=== PATIENT | male | born 1955 | race African-American/Black ===

== ENCOUNTER 2018-11-16 10:52 | Inpatient (IN) | payer OTHER ==
[~2018-11-16] VITALS: Ht 188 cm; Wt 115.2 kg
[~2018-11-16 10:52] MED LIST: HYDR4TAB4 PO; OXYC20TA PO; QUET300T2 PO; QUET400T PO; TRAZ-214 PO
[2018-11-16] MEDS ORDERED: ACETAMINOPHEN ES 500 MG TABLET PO PRN (14:30)
[2018-11-16] MEDS ORDERED: MAGNESIUM HYDROXIDE 30 ML UDC PO PRN (14:30)
[2018-11-16] MEDS ORDERED: MAG HYDROX/AL HYDROX/SIMETH 30 ML UDC PO PRN (14:30)
[2018-11-16 16:00] VITALS: BP 153/82
[2018-11-16] MEDS: LORAZEPAM 1 MG TABLET FOR AGITATION PO PRN (16:13)
[2018-11-16 20:00] VITALS: BP 143/77
[2018-11-16] MEDS: TRAZODONE 50 MG PO SCH (21:57)
[2018-11-16] MEDS ORDERED: SEROQUEL 300 MG PO SCH (22:00)
[2018-11-17] MEDS ORDERED: IBUPROFEN 200 MG TABLET ONE (02:40)
[2018-11-17] MEDS: IBUPROFEN 200 MG TABLET PO PRN ×3 (02:44→20:22)
[2018-11-17] MEDS: LORAZEPAM 1 MG TABLET FOR AGITATION PO PRN ×2 (05:07→17:09)
[2018-11-17 08:00] VITALS: BP 164/90
[2018-11-17] MEDS: BENAZEPRIL HCL 20 MG TABLET PO SCH (08:03)
[2018-11-17 16:00] VITALS: BP 158/91
[2018-11-17] MEDS: ACETAMINOPHEN ES 500 MG TABLET PO PRN (16:08)
[2018-11-17 20:03] VITALS: BP 150/82
[2018-11-17 20:26] VITALS: BP 150/82
[2018-11-17] MEDS: TRAZODONE 50 MG PO SCH (21:40)
[2018-11-17] MEDS ORDERED: SEROQUEL 50 MG PO SCH (22:00)
[2018-11-18] MEDS: ZOLPIDEM TARTRATE 10 MG TABLET PO PRN (00:25)
[2018-11-18] MEDS: IBUPROFEN 200 MG TABLET PO PRN ×3 (04:48→13:01)
[2018-11-18] MEDS: ACETAMINOPHEN ES 500 MG TABLET PO PRN ×3 (06:19→19:59)
[2018-11-18 08:00] VITALS: BP 152/102
[2018-11-18] MEDS: BENAZEPRIL HCL 20 MG TABLET PO SCH (08:01)
[2018-11-18 16:00] VITALS: BP 152/83
[2018-11-18] MEDS: TRIHEXYPHENIDYL HCL 2 MG TABLET PO SCH ×2 (16:34→20:00)
[2018-11-18 20:00] VITALS: BP 161/96
[2018-11-18] MEDS ORDERED: LORAZEPAM INJ 2 MG/ML VIAL IM ONE (20:40)
[2018-11-18] MEDS ORDERED: LORAZEPAM INJ 2 MG/ML VIAL IV ONE (21:00)
[2018-11-18] MEDS: TRAZODONE 50 MG PO SCH (21:54)
[2018-11-18] MEDS ORDERED: SEROQUEL 50 MG PO SCH (22:00)
[2018-11-19] MEDS: ZOLPIDEM TARTRATE 10 MG TABLET PO PRN ×2 (00:48→21:20)
[2018-11-19] MEDS: IBUPROFEN 200 MG TABLET PO PRN ×3 (02:43→19:10)
[2018-11-19] MEDS: LORAZEPAM 1 MG TABLET FOR AGITATION PO PRN ×2 (02:47→16:13)
[2018-11-19] MEDS: ACETAMINOPHEN ES 500 MG TABLET PO PRN ×2 (05:27→13:12)
[2018-11-19] MEDS: BENAZEPRIL HCL 20 MG TABLET PO SCH (08:09)
[2018-11-19] MEDS: TRIHEXYPHENIDYL HCL 2 MG TABLET PO SCH ×2 (08:11→16:20)
[2018-11-19 09:47] VITALS: BP 158/86
[2018-11-19 16:33] VITALS: BP 170/96
[2018-11-19 16:51] VITALS: BP 145/98
[2018-11-19] MEDS ORDERED: LORAZEPAM INJ 2 MG/ML VIAL IM ONE (20:00)
[2018-11-19 20:22] VITALS: BP 150/93
[2018-11-19] MEDS: SEROQUEL 50 MG PO SCH (22:53)
[2018-11-19] MEDS: TRAZODONE 50 MG PO SCH (22:53)
[2018-11-20] MEDS: IBUPROFEN 200 MG TABLET PO PRN ×2 (01:13→11:16)
[2018-11-20] MEDS: ACETAMINOPHEN ES 500 MG TABLET PO PRN ×2 (05:21→09:00)
[2018-11-20 08:00] VITALS: BP 156/100
[2018-11-20] MEDS: TRIHEXYPHENIDYL HCL 2 MG TABLET PO SCH (08:58)
[2018-11-20] MEDS: BENAZEPRIL HCL 20 MG TABLET PO SCH (08:59)
[2018-11-20] MEDS: LORAZEPAM 1 MG TABLET FOR AGITATION PO PRN (11:13)
[2018-11-20 16:00] VITALS: BP 147/100
[2018-11-20] MEDS: TRIHEXYPHENIDYL HCL 5 MG TABLET PO SCH (16:09)
[2018-11-20 20:00] VITALS: BP 140/90
[2018-11-20] MEDS: TRAZODONE 50 MG PO SCH (22:00)
[2018-11-20] MEDS ORDERED: QUETIAPINE FUMARATE 100 MG TABLET PO SCH (22:00)
[2018-11-20] MEDS ORDERED: TRAZODONE 50 MG TABLET PO SCH (22:00)
[2018-11-20] MEDS: SEROQUEL 50 MG PO SCH (22:00)
[2018-11-20] MEDS: ZOLPIDEM TARTRATE 10 MG TABLET PO PRN (22:52)
[2018-11-21] MEDS: ACETAMINOPHEN ES 500 MG TABLET PO PRN (07:03)
[2018-11-21 08:00] VITALS: BP 130/91
[2018-11-21] MEDS: TRIHEXYPHENIDYL HCL 5 MG TABLET PO SCH (08:31)
[2018-11-21 08:32] VITALS: BP 130/91
[2018-11-21] MEDS: BENAZEPRIL HCL 20 MG TABLET PO SCH (08:32)
[2018-11-21] MEDS ORDERED: LORAZEPAM 1 MG TABLET FOR AGITATION PO PRN (12:00)
[2018-11-22] MEDS ORDERED: INVESTIGATIONAL MED RGH-MD-24 1 CAP PO SCH (17:00)
== END 2018-11-21 12:38 | disposition home or self-care (01) | DRG 951 ==
LOC: MEDSG2 13:08 → GPSOV 11-18 12:07 → MED 11-19 05:48
PROVIDERS: ADMIT Psychiatry & Neurology Psychiatry; ATTEND Psychiatry & Neurology Psychiatry
DX: Z00.6 Encounter for examination for normal comparison and control in clinical research program (principal); F20.0 Paranoid schizophrenia; I10 Essential (primary) hypertension; Z80.3 Family history of malignant neoplasm of breast; Z81.8 Family history of other mental and behavioral disorders; Z82.49 Family history of ischemic heart disease and other diseases of the circulatory system; Z79.899 Other long term (current) drug therapy; G47.00 Insomnia, unspecified
CPT/HCPCS: 87081-TC; G0378; J2060

== ENCOUNTER 2019-11-06 19:37 | Inpatient (IN) | payer OTHER ==
[~2019-11-06] VITALS: Ht 188 cm; Wt 112.9 kg
[~2019-11-06 19:37] MED LIST changes: -TRAZ-214 PO; +TRAZ-257 PO
[2019-11-06 20:45] LABS: BASOPHILS # (AUTO) 0.1 /CMM (0.0-0.2); BASOPHILS % (AUTO) 1.1 % (0.0-2.0); EOSINOPHILS % (AUTO) 6.8 % (0.0-6.0); HEMATOCRIT 45 % (39-51); HEMOGLOBIN 14.7 g/dL (13.5-17.5); LYMPHOCYTES # (AUTO) 1.4 /CMM (0.8-4.8); LYMPHOCYTES % (AUTO) 28.5 % (20.0-44.0); MEAN CORPUSCULAR HGB CONC 33 g/dl (31.0-36.0); MEAN CORPUSCULAR VOLUME 88 fL (80-96); MONOCYTES # (AUTO) 0.5 /CMM (0.1-1.30); MONOCYTES % (AUTO) 9.7 % (2.0-12.0); NEUTROPHILS # (AUTO) 2.6 /CMM (1.8-8.9); NEUTROPHILS % (AUTO) 53.9 % (43.0-81.0); PLATELET COUNT (AUTO) 221 /CMM (150-450); RED BLOOD CELL COUNT(AUTO) 5.08 MIL/uL (4.5-6.0); WHITE BLOOD COUNT (AUTO) 4.9 K/uL (4.3-11.0)
[2019-11-06 21:03] LABS: ALANINE AMINOTRANSFERASE 45 U/L (12-78); ALBUMIN 3.7 g/dL (3.4-5.0); ALCOHOL, BLOOD < 3 mg/dL (0-0); ALKALINE PHOSPHATASE 94 U/L (46-116); ASPARTATE AMINOTRANSFERASE 33 U/L (15-37); BILIRUBIN,DIRECT 0.1 mg/dL (0.0-0.2); BILIRUBIN,TOTAL 0.2 mg/dL (0.2-1.0); CALCIUM, SERUM 8.9 mg/dL (8.5-10.1); CARBON DIOXIDE 29 mmol/L (21-32); CHLORIDE 107 mmol/L (98-107); CREATININE 1.2 mg/dL (0.6-1.3); GLUCOSE 75 mg/dL (74-106); SODIUM SERUM 144 mmol/L (136-145); TOTAL PROTEIN, SERUM 7.6 g/dL (6.4-8.2); UREA NITROGEN, BLOOD 14 mg/dL (7-18)
[2019-11-06 21:04] LABS: ACETAMINOPHEN 0 ug/ml (10-30); SALICYLATE 1.1 mg/dL (2.8-20.0)
[2019-11-06 21:08] LABS: APPEARANCE,URINE Clear (CLEAR); BILIRUBIN,URINE Negative (NEGATIVE); BLOOD, URINE Negative Ery/uL (NEGATIVE); COLOR,URINE Yellow (YELLOW); KETONES,URINE Negative (NEGATIVE); LEUKOCYTE ESTERASE ,URINE Negative (NEGATIVE); NITRITE, URINE Negative (NEGATIVE); PH,URINE 5.5 (5.0-8.0); PROTEIN,URINE Negative (NEGATIVE); UGLUCOSE Negative (NEGATIVE); UROBILINOGEN,URINE 0.2 EU/dL (0.2)
[2019-11-06] MEDS ORDERED: HYDROCODONE/APAP 10/325MG 1 EA TABLET ONE (21:29)
[2019-11-06] MEDS ORDERED: HYDROCODONE/APAP 10/325MG 1 EA TABLET PO ONE (21:30)
--- NOTE | 2019-11-07 | NUR ---
CALLED NURSING SUP FOR GPS BED.
--- NOTE | 2019-11-07 00:10 | NUR ---
NURSING SUP GAVE GPS BED 216-B.
--- NOTE | 2019-11-07 00:14 | NUR ---
SEEN BY ART FROM CRISIS TEAM . PT WAS PLACED ON 5150 HOLD FOR SI. PT REMAINED UNDER CLOSE MONITORING AND SUPERVISION FOR SAFETY
--- NOTE | 2019-11-07 00:58 | NUR ---
report given to Michaela AC for GILLIAN.
--- NOTE | 2019-11-07 01:10 | NUR ---
pt was transferred to GPS in stable condition
--- NOTE | 2019-11-07 01:15 | NUR ---
GPS MEDICAL IMAGING SPECIALIST NOTES: RECEIVED 64 Y/O MALE PATIENT FROM ER DEPARTMENT. PATIENT ARRIVED ON THIS UNIT AT 0115 VIA WHEELCHAIR BY 2 NURSES. PATIENT ADMITTED ON A 5150 HOLD FOR DTS. PER HOLD PATIENT ARRIVED TO [facility] GPS UNIT DUE TO HAVING STRONG COMMAND HALLUCINATIONS TO RUN INTO TRAFFIC TO END HIS LIFE. PATIENT ALSO SEES FOUR MEN TRYING TO TIE THEMSELVES TO HIS WRIST. PATIENT IS DEPRESSED AND SUICIDAL. UPON FACE TO FACE ASSESSMENT PATIENT NOTED DEPRESSED, COOPERATIVE, RESERVED, GUARDED, QUIET, AND FLAT AFFECT . PT STATES HE IS CURRENTLY HEARING VOICES TELLING HIM TO RUN INTO TRAFFIC BUT NO VISUAL H/I AT THIS TIME. PATIENT IS CURRENTLY LYING IN BED SLEEPING COMFORTABLY WITH EYES CLOSED. NO S/S OF RESP DISTRESS. BREATHING EVEN AND UNLABORED. PT HAS NO S/S OF PAIN AT THIS TIME. PT IS ALERT AND ORIENTED X 3-4 ON ROOM AIR. PATIENT HAS NO NEEDS AT THIS TIME. PATIENT UNABLE TO SIGN PAPERWORK DUE TO WANTING TO SLEEP. PATIENT ADVISED OF HIS HOLD AND PATIENT RIGHTS HANDBOOK GIVEN. PATIENTS BELONGINGS WERE INVENTORIED AND CHECKED FOR CONTRABAND. PATIENT ADVANCED DIRECTIVE PREFERENCES AND NECESSARY PAPERWORK COMPLETED. PATIENT SKIN ASSESSMENT COMPLETED WITH PICTURES TAKEN IN PTS CHART. PT NOTED WITH CALLOUS ON RIGHT HEEL AND BILATERAL LOWER LEG DRYNESS. PT ORIENTED TO ROOM, FLOOR, AND STAFF WITH ALL QUESTIONS ANSWERED. PATIENT EDUCATED ON THE USE OF CALL SIU. PATIENTS SIDERAILS ARE UP X2 FOR SAFETY. INITIAL BLOOD SUGAR CHECK DONE. MRSA SWAB DONE. PT HAS HIS BROTHER (JORGE BROWNING) LISTED HIS NEXT OF KIN BUT REQUESTED NOT FOR HIM OR ANYONE TO KNOW THAT HE IS AT THE HOSPITAL. PATIENTS BED LOCKED, LOW AND I WILL CONTINUE TO MONITOR THIS PATIENT Q15 MIN WITH THE HELP OF THE STAFF TO MAINTAIN SAFETY.
[2019-11-07] MEDS ORDERED: clonazePAM 0.5 MG TABLET PO PRN (01:30)
[2019-11-07] MEDS ORDERED: BLOOD SUGAR DIAGNOSTIC 1 EACH STRIP IN ONE (01:30)
[2019-11-07] MEDS ORDERED: ACETAMINOPHEN 325 MG TABLET PO PRN (01:30)
[2019-11-07] MEDS ORDERED: MAG HYDROX/AL HYDROX/SIMETH 30 ML UDC PO PRN (01:30)
[2019-11-07] MEDS ORDERED: MAGNESIUM HYDROXIDE 30 ML UDC PO PRN (01:30)
[2019-11-07 01:44] VITALS: BP 143/85
[2019-11-07] MEDS ORDERED: OXYCODONE PO (04:15)
[2019-11-07 08:00] VITALS: BP 130/82
[2019-11-07] MEDS ORDERED: AMLO5TAB9 PO (08:09)
[2019-11-07] MEDS ORDERED: OXYC15TA2 PO (08:09)
[2019-11-07] MEDS ORDERED: CLON0.1T PO (08:09)
[2019-11-07] MEDS ORDERED: CLON1TAB12 PO (08:09)
[2019-11-07] MEDS ORDERED: TEMA30CA PO (08:09)
[2019-11-07] MEDS ORDERED: LISI40TA4 PO (08:09)
[2019-11-07] MEDS ORDERED: QUET200T PO (08:09)
[2019-11-07] MEDS ORDERED: GABA-536 PO (08:09)
--- NOTE | 2019-11-07 08:23 | NUR ---
RN NOTERS ADMINISTERED TYLENOL 650 MG PO PRN FOR LOWER BACK PAIN, AND KLONOPIN 0.5 MG PO PRN FOR ANXIETY, PER PATIENT REQUEST, V/S TAKEN BP-130/82, P-56, PATIENT USING WALKER, SAFETY PRECAUTION MAINTAINED ALL THE TIME.
[2019-11-07] MEDS ORDERED: CLONIDINE HCL 0.1 MG TABLET PO PRN (10:30)
[2019-11-07] MEDS: LISINOPRIL (20MG) 20 MG TABLET PO SCH (10:42)
[2019-11-07] MEDS: oxyCODONE IR immediate release 5 MG PO PRN ×2 (10:43→18:42)
--- NOTE | 2019-11-07 10:43 | NUR ---
RN NOTES ADMINISTERED OXY IR 15 MG PO PRN FOR CHRONIC LOWER BACK PAIN 05/18 PER PATIENT REQUEST, V/S TAKEN BP 130/85, P-59, ENCOURAGED TO INCREASE FLUID INTAKE, CONTINUED MONITORING.
[2019-11-07] MEDS: GABAPENTIN 400 MG CAPSULE PO PRN (11:43)
--- NOTE | 2019-11-07 11:43 | NUR ---
RN NOTES ADMINISTERED NEURONTIN 800 MG PO PRN FOR BLE NEURO PAIN PER PATIENT REQUEST, CONTINUED MONITORING.
--- NOTE | 2019-11-07 12:14 | NUR ---
Initial Discharge Plan: Pt currently resides with his cousin at his home located at [address] [place] [address]; ([phone]). Per pt, he would like to return to his cousin's home. SW will work with the pt and the MD regarding appropriate discharge planning. SW will form a safe and proper plan.
--- NOTE | 2019-11-07 14:46 | NUR ---
Substance Abuse Intervention: SW conducted a substance abuse intervention with the pt due to his opiate use.
--- NOTE | 2019-11-07 15:20 | NUR ---
Group Note: SW encouraged pt to participate in group on 11/07/19 at 2pm discussing suicidal urges. Pt refused to participate in group and stated that he is not comfortable with anyone listening to any of his conversations. Pt appeared to be paranoid. Pt stated that he has not harmed himself in the past and has never overdosed. Pt stated that this topic does not apply to him.
--- NOTE | 2019-11-07 15:20 | NUR ---
Point of Contact: Pt did not provide his consent to contact his brother who is on his face sheet as a person to notify.
[2019-11-07 16:00] VITALS: BP 126/65
[2019-11-07] MEDS: QUETIAPINE FUMARATE 100 MG TABLET PO SCH (17:01)
--- NOTE | 2019-11-07 18:42 | NUR ---
RN NOTES ADMINISTERED OXY IR 15 MG PO PRN FOR LOWER BACK PAIN 05/18 PER PATIENT REQUEST V/S TKEN BP 126/65, P-54, R-18, CONTINUED MONITORING.
--- NOTE | 2019-11-07 19:29 | NUR ---
GPS RN NOTE, RECEIVED PATIENT AWAKE AND IN BED, NO S/S OR COMPLAINTS OF PAIN AT THIS TIME. PATIENT IS DISPLAYING NO S/S OF APPARENT DISTRESS AT THIS TIME. PATIENT BREATHING IS UNLABORED WITH EQUAL RISE AND FALL OF THE CHEST. PATIENT IS ALERT AND ORIENTED X 2-3 ON ROOM AIR WITH A SPO2 95%. PATIENT IS MED COMPLIANT, ANXIOUS AT TIMES, SUSPICIOUS, PARANOID, MAKES NEEDS KNOWN, DELUSIONAL AT TIMES, AND COOPERATIVE. PATIENT DENIES HOMICIDAL IDEATIONS AT THIS TIME. PATIENT ASSISTED WITH TURNING AND REPOSITIONING Q2HR AND PRN FOR COMFORT AND CIRCULATION. PATIENT HAS NO NEEDS AT THIS TIME. PATIENT EDUCATED ON THE USE OF THE CALL SIU. PATIENT BED SIDE RAILS UP X 2 FOR SAFETY. PATIENT BED IS LOCKED, LOW, WITH BED ALARM ON. WILL CONTINUE TO MONITOR THIS PATIENT Q15 MINUTES WITH THE HELP OF STAFF TO MAINTAIN SAFETY.
[2019-11-07] MEDS: clonazePAM 0.5 MG TABLET PO PRN (19:54)
--- NOTE | 2019-11-07 19:54 | NUR ---
GPS RN NOTE, PATIENT HAS A COMPLAINT OF FEELING ANXIOUS AND IS REQUESTING KLONOPIN AT THIS TIME. PATIENT VITAL SIGNS ARE STABLE. GAVE KLONOPIN 1.0 MG PO Q6HR PRN ORDERED. WILL REASSESS FOR ANXIETY AND I WILL CONTINUE TO MONITOR THIS PATIENT.
[2019-11-07 20:21] VITALS: BP 121/66
[2019-11-07] MEDS: TEMAZEPAM 7.5 MG CAPSULE PO PRN (21:35)
--- NOTE | 2019-11-07 21:35 | NUR ---
GPS RN NOTE, PATIENT HAS A COMPLAINT OF NOT BEING ABLE TO SLEEP AND IS REQUESTING RESTORIL AT THIS TIME. PATIENT VITAL SIGNS ARE STABLE. GAVE RESTORIL 7.5MG PO HS PRN ORDERED. WILL REASSESS FOR INSOMNIA AND I WILL CONTINUE TO MONITOR THIS PATIENT.
[2019-11-08] MEDS: oxyCODONE IR immediate release 5 MG PO PRN ×3 (03:10→18:50)
--- NOTE | 2019-11-08 03:10 | NUR ---
GPS RN NOTE, PATIENT HAS A COMPLAINT OF LOWER BACK AT 8 OUT 10 ON THE PAIN SCALE AND IS REQUESTING OXY IR AT THIS TIME. PATIENT VITAL SIGNS ARE STABLE. GAVE OXY IR 15 MG PO Q8HR PRN ORDERED. WILL REASSESS PAIN AND I WILL CONTINUE TO MONITOR THIS PATIENT.
[2019-11-08 08:00] VITALS: BP 123/69
[2019-11-08] MEDS: LISINOPRIL (20MG) 20 MG TABLET PO SCH (08:20)
[2019-11-08] MEDS: AMLODIPINE BESYLATE 5 MG TABLET PO SCH (08:21)
[2019-11-08] MEDS: NICOTINE PATCH (14MG) 14 MG PATCH.TD24 TD SCH (08:21)
[2019-11-08] MEDS: QUETIAPINE FUMARATE 100 MG TABLET PO SCH ×2 (08:21→17:05)
[2019-11-08] MEDS: clonazePAM 0.5 MG TABLET PO PRN (08:44)
[2019-11-08] MEDS: GABAPENTIN 400 MG CAPSULE PO PRN (10:04)
--- NOTE | 2019-11-08 15:01 | NUR ---
Discharge Note: Pt was discharged to his cousins home located at [address] [place] [address]; ([phone]). Pt was discharged at 12pm and was given a TAP card. Pt did not allow the to notify anyone about his discharge. Pt was provided with homeless resources including [facility]pc, health and mental health clinics, substance abuse referrals, homeless shelters, food tracy, hot meals and showers. Pt signed the homeless waiver. Pt was referred to be under the care of [facility] of Mental Health located at [address] [place] [address]; ; fax was sent to: for psychiatric services. Pt was referred to [facility] located at [address], [place]; for medical services.
[2019-11-08 16:00] VITALS: BP 130/79
[2019-11-08 20:00] VITALS: BP 138/85
[2019-11-08] MEDS: TEMAZEPAM 7.5 MG CAPSULE PO PRN (20:49)
[2019-11-09] MEDS: clonazePAM 0.5 MG TABLET PO PRN ×2 (01:49→08:24)
[2019-11-09] MEDS: oxyCODONE IR immediate release 5 MG PO PRN (03:01)
[2019-11-09 08:00] VITALS: BP 151/90
[2019-11-09] MEDS: NICOTINE PATCH (14MG) 14 MG PATCH.TD24 TD SCH (08:23)
[2019-11-09] MEDS: LISINOPRIL (20MG) 20 MG TABLET PO SCH (08:24)
[2019-11-09 08:25] VITALS: BP 112/67
[2019-11-09] MEDS: AMLODIPINE BESYLATE 5 MG TABLET PO SCH (08:25)
[2019-11-09] MEDS: QUETIAPINE FUMARATE 100 MG TABLET PO SCH (08:25)
--- NOTE | 2019-11-09 08:43 | NUR ---
DR. RICHARDSON GAVE AN ORDER TO D/C HOLD AND D/C TO COUSIN'S HOME AND TO FOLLOW UP WITH PSYCH AND MEDICAL DOCTORS. PT. DOESN'T ALLOW THE NURSE TO NOTIFY ANYONE FOR HIS DISCHARGE.
--- NOTE | 2019-11-09 12:34 | NUR ---
PATIENT IS A 64 YEAR OLD MALE DISCHARGED TO HIS COUSINS HOME. PATIENT IS IN STABLE CONDITION. VSS. NO ACUTE DISTRESS NOTED. NO COMPLAINTS. COMPLIANT WITH MEDICATION MANAGEMENT. COOPERATIVE WITH PLAN OF CARE. PSYCHIATRIC TREATMENT PLANS MET. MEDICAL TREATMENT PLANS DEFERRED FOR CONTINUAL MONITORING. DENIES SI/HI VAH AT THE TIME OF DISCHARGE. SKIN CHECK DONE WITH WOUND PICTURES IN CHART. EDUCATED PATIENT ABOUT AFTERCARE WITH COPY PROVIDED. RETURNED PERSONAL BELONGINGS TO PATIENT. MEDICATIONS RECONCILED WITH DR RICHARDSON AND PRESCRIPTIONS GIVEN. PATIENT REFUSED TO WAIT FOR BUITRAGO TOMBSTONE ERECTOR FOR MEDICAL MEDICATION PRESCRIPTIONS BUT STATED HE HAS THEM AT HOME. DISCHARGE PAPERWORK SIGNED. FOR FOLLOW UP WITH PSYCHIATRIST AND SPOT FACER WITHIN 1 WEEK. PATIENT LEFT THE [facility] GPS AT 1225 AND RECEIVED TAP CARD.
== END 2019-11-09 12:25 | disposition home or self-care (01) | DRG 885 ==
LOC: ER 19:42 → GPS 11-07 00:46
PROVIDERS: ADMIT Psychiatry & Neurology Psychiatry; ATTEND Internal Medicine
DX: F20.0 Paranoid schizophrenia (principal); R45.851 Suicidal ideations; J98.11 Atelectasis; J90 Pleural effusion, not elsewhere classified; G89.29 Other chronic pain; I10 Essential (primary) hypertension; M16.0 Bilateral primary osteoarthritis of hip; G62.9 Polyneuropathy, unspecified; Z88.8 Allergy status to other drugs, medicaments and biological substances; Z79.899 Other long term (current) drug therapy; F29 Unspecified psychosis not due to a substance or known physiological condition; M48.00 Spinal stenosis, site unspecified; Z72.0 Tobacco use
CPT/HCPCS: 36415; 71045-TC; 80048-TC; 80076-TC; 80305; 81000-TC; 82565-TC; 82962-TC; 85025-TC; 87081-TC; 97116-TC; 97530-TC; G0480

== ENCOUNTER 2020-05-25 15:12 | Inpatient (IN) | payer MEDICARE, OTHER ==
[~2020-05-25] VITALS: Ht 188 cm; Wt 123.8 kg
[~2020-05-25 15:12] MED LIST changes: +AMLO5TAB9 PO; +CLON0.1T PO; +CLON1TAB12 PO; +GABA-536 PO; -HYDR4TAB4 PO; +LISI40TA4 PO; +OXYC15TA2 PO; -OXYC20TA PO; +QUET200T PO; -QUET400T PO; +TEMA30CA PO; -TRAZ-257 PO
--- NOTE | 2020-05-25 15:12 | NUR ---
PT BIB SELF C/O SI "I WANT TO RUNB THROUGH TRAFFIC" PT IS AAOX4, NOT IN RESPIRATORY DISTRESS, V/S STABLE, KEPT RESTED AND COMFORTABLE. WILL CONTINUE TO MONITOR.
--- NOTE | 2020-05-25 15:30 | NUR ---
SEEN AND EXAMINED BY .
--- NOTE | 2020-05-25 15:50 | NUR ---
ER PHLEB AT BEDSIDE FOR BLOOD DRAW.
--- NOTE | 2020-05-25 15:52 | NUR ---
CALLED SECURITY FOR WANDING.
--- NOTE | 2020-05-25 16:06 | NUR ---
URINAL GIVEN BUT UNABLE TO PROVIDE URINE SPECIMEN THIS TIME.
[2020-05-25 16:20] LABS: CALCIUM, SERUM 10.1 mg/dL (8.5-10.1); POTASSIUM 3.4 mmol/L (3.5-5.1)
[2020-05-25 16:25] LABS: BASOPHILS # (AUTO) 0.1 /CMM (0.0-0.2); EOSINOPHILS % (AUTO) 3.6 % (0.0-6.0); HEMATOCRIT 52 % (39-51); HEMOGLOBIN 17.3 g/dL (13.5-17.5); LYMPHOCYTES # (AUTO) 2.9 /CMM (0.8-4.8); LYMPHOCYTES % (AUTO) 39.1 % (20.0-44.0); MEAN CORPUSCULAR HGB CONC 33 g/dl (31.0-36.0); MEAN CORPUSCULAR VOLUME 88 fL (80-96); MONOCYTES # (AUTO) 1.2 /CMM (0.1-1.30); MONOCYTES % (AUTO) 16.6 % (2.0-12.0); NEUTROPHILS # (AUTO) 2.9 /CMM (1.8-8.9); NEUTROPHILS % (AUTO) 39.7 % (43.0-81.0); PLATELET COUNT (AUTO) 271 /CMM (150-450); RED BLOOD CELL COUNT(AUTO) 5.91 MIL/uL (4.5-6.0); WHITE BLOOD COUNT (AUTO) 7.3 K/uL (4.3-11.0)
[2020-05-25 16:26] LABS: BILIRUBIN,DIRECT 0.2 mg/dL (0.0-0.2); BILIRUBIN,TOTAL 0.6 mg/dL (0.2-1.0)
[2020-05-25 16:29] LABS: SALICYLATE 0.9 mg/dL (2.8-20.0)
--- NOTE | 2020-05-25 17:33 | NUR ---
PT STILL UNABLE TO PROVIDE URINE SPECIMEN. AWARE.
--- NOTE | 2020-05-25 17:53 | NUR ---
COVID SPECIMEN OBTAINED AND SENT TO LAB.
[2020-05-25 18:12] LABS: EOSINOPHILS % (MANUAL) 1 % (0-4); LYMPHOCYTES % (MANUAL) 43 % (16-48); MONOCYTES % (MANUAL) 16 % (0-11.0); NEUTROPHILS % (MANUAL) 40 (42-76)
[2020-05-25] MEDS ORDERED: GABA600T12 PO (18:34)
--- NOTE | 2020-05-25 19:08 | NUR ---
REPORT GIVEN TO YASHIRA WARD FOR GILLIAN.
--- NOTE | 2020-05-25 19:28 | NUR ---
Call from lab. Rapid covid negative.
--- NOTE | 2020-05-25 20:05 | NUR ---
MS2/RN RECEIVED PATIENT FROM [facility] BY BED AWAKE, ALERT, ORIENTED TO PERSON ONLY, COMFORTABLE, NO C/O PAIN. NO DISTRESS NOTED, MADE COMFORTABLE IN BED, PLACED CALL LIGHT IN REACH. WILL MONITOR.
[2020-05-25 21:00] VITALS: BP 147/95
--- NOTE | 2020-05-25 21:07 | NUR ---
REPORT GIVEN TO MAE AC FOR GILLIAN
[2020-05-25] MEDS ORDERED: MAG HYDROX/AL HYDROX/SIMETH 30 ML UDC PO PRN (22:30)
[2020-05-25] MEDS ORDERED: ZOLPIDEM TARTRATE 5 MG TABLET PO PRN (22:30)
[2020-05-25] MEDS ORDERED: MAGNESIUM HYDROXIDE 30 ML UDC PO PRN (22:30)
[2020-05-25] MEDS ORDERED: ACETAMINOPHEN 325 MG TABLET PO PRN (22:30)
[2020-05-25] MEDS ORDERED: Z GUARD REMEDY 2 OZ OINT TP PRN (22:30)
[2020-05-25] MEDS ORDERED: ONDANSETRON HCL/PF 4 MG/2 ML VIAL IVP PRN (22:30)
[2020-05-25] MEDS: IV 1/2NS 1000 ML 1,000 ML IV PRN (23:01)
[2020-05-25] MEDS: HYDROCODONE/APAP 5/325MG TABLET PO PRN (23:03)
[2020-05-25] MEDS ORDERED: TEMA30CA5 PO (23:39)
[2020-05-26] MEDS ORDERED: clonazePAM 1 MG TABLET PO PRN ×2 (01:00→14:30)
[2020-05-26] MEDS ORDERED: TEMAZEPAM PO SCH (01:00)
[2020-05-26] MEDS ORDERED: CLONIDINE HCL 0.1 MG TABLET PO PRN (01:00)
--- NOTE | 2020-05-26 01:00 | NUR ---
MS2/RN PATIENT IS SLEEPING, APPEAR COMFORTABLE, NO SIGNS OF DISTRESS NOTED, CALL LIGHT IN REACH. WILL CONTINUE TO [id number].
--- NOTE | 2020-05-26 01:48 | NUR ---
MS2/RN RECEIVED PATIENT FROM ER AT AROUND 2133 BY BED. PATIENT WAS AWAKE, ALERT, ORIENTED, COMFORTABLE, NO C/O PAIN AT THIS TIME, NO DISTRESS NOTED, ADMISSION DONE PER PROTOCOL, PLAN OF CARE DISCUSSED WITH THE PATIENT, VERBALIZED UNDERSTANDING AND AGREEMENT, FALL RISK, FALL PRECAUTIONS PER PROTOCOL IMPLEMENTED. TAUGHT THE USE OF CALL LIGHT AND PLACED IT AT BEDSIDE WITHIN REACH. WILL MONITOR.
[2020-05-26] MEDS ORDERED: TEMAZEPAM 15 MG CAPSULE PO PRN (02:00)
--- NOTE | 2020-05-26 06:22 | NUR ---
MS2/RN PATIENT IS SLEEPING, APPEAR COMFORTABLE, NO SIGNS OF DISTRESS NOTED, CALL LIGHT IN REACH, ALL NEEDS ATTENDED AT THIS TIME, WILL CONTINUE TO MONITOR.
[2020-05-26] MEDS: HYDROCODONE/APAP 5/325MG TABLET PO PRN (06:39)
[2020-05-26 06:44] LABS: BASOPHILS % (AUTO) 0.6 % (0.0-2.0); EOSINOPHILS % (AUTO) 4.9 % (0.0-6.0); HEMATOCRIT 43 % (39-51); HEMOGLOBIN 14.3 g/dL (13.5-17.5); LYMPHOCYTES # (AUTO) 1.9 /CMM (0.8-4.8); LYMPHOCYTES % (AUTO) 35.9 % (20.0-44.0); MEAN CORPUSCULAR HGB CONC 33 g/dl (31.0-36.0); MEAN CORPUSCULAR VOLUME 87 fL (80-96); MONOCYTES # (AUTO) 0.8 /CMM (0.1-1.30); MONOCYTES % (AUTO) 14.8 % (2.0-12.0); NEUTROPHILS # (AUTO) 2.3 /CMM (1.8-8.9); NEUTROPHILS % (AUTO) 43.8 % (43.0-81.0); PLATELET COUNT (AUTO) 193 /CMM (150-450); RED BLOOD CELL COUNT(AUTO) 4.97 MIL/uL (4.5-6.0); WHITE BLOOD COUNT (AUTO) 5.2 K/uL (4.3-11.0)
[2020-05-26 07:33] LABS: ALBUMIN 3.2 g/dL (3.4-5.0); BILIRUBIN,DIRECT 0.2 mg/dL (0.0-0.2); CALCIUM, SERUM 8.3 mg/dL (8.5-10.1); CREATININE 1.3 mg/dL (0.6-1.3); MAGNESIUM 2.1 mg/dL (1.8-2.4); PHOSPHORUS 4.3 mg/dL (2.5-4.9); POTASSIUM 3.2 mmol/L (3.5-5.1); TOTAL PROTEIN, SERUM 7.5 g/dL (6.4-8.2)
[2020-05-26 08:00] VITALS: BP 128/52
--- NOTE | 2020-05-26 08:00 | NUR ---
MS RN OPENING NOTES Received Patient resting in bed. A/O x 4. VS stable with no acute distress. Breathing even and unlabored on room air with no respiratory distress. Patient stated lower back pain of 8/10. Will intervene as ordered. 22g PIV on RFA intact, patent and flushing well with 1/2NS infusing at 75ml/hr. Safety precautions in place. Patient stated hearing voices to harm self. Patient verbalizes suicidal ideations. Sitter at bedside for safety. Bed locked and set to lowest position with side rails x 2 up. All needs rendered at this time. Call light within reach. Will continue to monitor.
[2020-05-26 08:12] LABS: BILIRUBIN,TOTAL 0.6 mg/dL (0.2-1.0)
[2020-05-26] MEDS: GABAPENTIN 300 MG CAPSULE PO SCH ×3 (08:22→16:17)
[2020-05-26] MEDS ORDERED: LISINOPRIL (20MG) 20 MG TABLET PO SCH (09:00)
[2020-05-26] MEDS ORDERED: QUETIAPINE FUMARATE 100 MG TABLET PO SCH ×2 (09:00→18:00)
[2020-05-26] MEDS ORDERED: AMLODIPINE BESYLATE 5 MG TABLET PO SCH (09:00)
[2020-05-26 09:05] LABS: THYROID STIMULATING HORMONE 5.028 uIU/mL (0.358-3.74)
--- NOTE | 2020-05-26 10:05 | NUR ---
Activities Aide: This SW spoke with YASHIRA Salinas regarding this patients pending psych consult. This SW requesting a friendly reminder for the MD.
[2020-05-26] MEDS: POTASSIUM CL. PREMIX PERIPHER. 50 ML IV SCH ×4 (11:17→16:17)
[2020-05-26] MEDS: oxyCODONE IR immediate release 5 MG PO PRN ×2 (11:20→17:40)
[2020-05-26] MEDS: IV 1/2NS 1000 ML 1,000 ML IV PRN (13:52)
[2020-05-26 16:00] VITALS: BP 119/68
--- NOTE | 2020-05-26 17:55 | NUR ---
MS RN NOTES Faxed Facesheet to Administration for transfer of care to GPS. Called and confirmed that Administration received fax.
--- NOTE | 2020-05-26 19:10 | NUR ---
MS EMBEDDED SYSTEMS DESIGNER NOTES Patient discharged for GPS at this time. Patient in stable condition. VS stable with no acute distress. Breathing even and unlabored on room air with no respiratory distress. Patient stated tolerable lower back pain. Skin intact. Removed intact PIV on RFA. Patient tolerated well. Medication reconciliation and discharge orders reviewed with Patient. Patient verbalized understanding. Patient will follow up with GPS. All belongings with Patient. Patient escorted to GPS for safety. Report given to Reddy AC.
[2020-05-26 19:25] LABS: APPEARANCE,URINE CLEAR (CLEAR); BILIRUBIN,URINE NEGATIVE (NEGATIVE); BLOOD, URINE NEGATIVE Ery/uL (NEGATIVE); COLOR,URINE YELLOW (YELLOW); KETONES,URINE NEGATIVE (NEGATIVE); LEUKOCYTE ESTERASE ,URINE NEGATIVE (NEGATIVE); NITRITE, URINE NEGATIVE (NEGATIVE); PROTEIN,URINE NEGATIVE (NEGATIVE); UGLUCOSE NEGATIVE (NEGATIVE); UROBILINOGEN,URINE 0.2 EU/dL (0.2)
[2020-05-26 19:58] LABS: CREATININE, URINE 83.7 MG/DL (30.0-125.0); URINE TOTAL PROTEIN 12.9 mg/dL (0-11.9)
[2020-05-26 20:00] LABS: EOSINOPHIL,URINE None Seen
== END 2020-05-26 19:00 | DRG 640 ==
LOC: ER 15:16 → MEDSG2 21:01
PROVIDERS: ADMIT Student in an Organized Health Care Education/Training Program; ATTEND Nurse Practitioner Acute Care
DX: E86.0 Dehydration (principal); N17.0 Acute kidney failure with tubular necrosis; R45.851 Suicidal ideations; G93.40 Encephalopathy, unspecified; G62.9 Polyneuropathy, unspecified; E87.6 Hypokalemia; I10 Essential (primary) hypertension; F41.9 Anxiety disorder, unspecified; M48.00 Spinal stenosis, site unspecified; M16.0 Bilateral primary osteoarthritis of hip; Z88.8 Allergy status to other drugs, medicaments and biological substances; Z79.899 Other long term (current) drug therapy; M19.90 Unspecified osteoarthritis, unspecified site; Z72.0 Tobacco use; F25.0 Schizoaffective disorder, bipolar type; F19.90 Other psychoactive substance use, unspecified, uncomplicated; R74.0 Nonspecific elevation of levels of transaminase and lactic acid dehydrogenase [LDH]; Z59.0 Homelessness; K76.0 Fatty (change of) liver, not elsewhere classified; F32.9 Major depressive disorder, single episode, unspecified
CPT/HCPCS: 36415; 76700-TC; 80048-TC; 80061-TC; 80076-TC; 80305; 81000-TC; 82570-TC; 83735-TC; 84100-TC; 84155-TC; 84300-TC; 84443-TC; 85025-TC; 87081-TC; C9803-CS; G0378; G0480; J3480; J3490

== ENCOUNTER 2020-05-26 18:32 | Inpatient (IN) | payer MEDICARE, OTHER ==
[~2020-05-26] VITALS: Ht 182.9 cm; Wt 122.5 kg
[~2020-05-26 18:32] MED LIST changes: -GABA-536 PO; +GABA600T12 PO; -TEMA30CA PO; +TEMA30CA5 PO
[2020-05-26] MEDS ORDERED: MAG HYDROX/AL HYDROX/SIMETH 30 ML UDC PO PRN (19:30)
[2020-05-26] MEDS ORDERED: ACETAMINOPHEN 325 MG TABLET PO PRN (19:30)
[2020-05-26] MEDS ORDERED: MAGNESIUM HYDROXIDE 30 ML UDC PO PRN (19:30)
[2020-05-26] MEDS ORDERED: LORAZEPAM 0.5 MG TABLET PO PRN (19:30)
--- NOTE | 2020-05-26 19:50 | NUR ---
GPS-MEDICAL ACCOUNTING CLERK NOTE: ADMITTED 65-YR OLD, MALE, FROM MS 2 TO GPS UNIT ROOM 212-1. IN NO APPARENT DISTRESS NOTED. UPON ADMISSION ASSESSMENT, PATIENT VERBALIZED THAT HE CAME TO [facility] ER BECAUSE HE WAS HEARING VOICES TELLING HIM TO WALK THROUGH THE TRAFFIC. BUT PATIENT HAD SHERITA, CREATININE OF 2. PATIENT WAS DISCHARGED TO GPS ONCE TREATED FOR SHERITA. PATIENT WAS VOLUNTARILY ADMITTED TO GPS UNIT. PATIENT IS A & O X 3, ANXIOUS, RESTLESS, PARANOID AT TIMES. DEPRESSED, FLAT AFFECT, NEEDY, AMBULATORY, UNSTEADY, USES WALKER OR WHEELCHAIR WHEN OUT OF BED. DENIES SI/HI/AVH AT THIS TIME. FALL RISK. CONTINENT OF B & BM. ABLE TO MAKE NEEDS KNOWN. BELONGINGS WERE INVENTORIED AND CHECKED FOR CONTRABAND. PT. IS UNDER THE PSYCHIATRIC CARE OF DR. MCPHERSON. ORDERS OBTAINED, AND UNDER THE MEDICAL CARE OF Roland ZENG. SKIN ASSESSMENT DONE. PT DENIES PAIN/DISCOMFORT AT THIS TIME. ASKED THE PATIENT WHO TO NOTIFY ABOUT HIS ADMISSION AT [facility], PATIENT REFUSED TO CALL ANYONE TO INFORM. PER PT. HE LIVED WITH A FRIEND BUT NOW HE IS HOMELESS. BED LOCKED AND PLACED IN LOWEST POSITION TO MAINTAIN SAFETY. FALL PRECAUTIONS IMPLEMENTED. PT'S RIGHTS HANDBOOK AND A GUIDE TO PRESCRIPTION MEDICATIONS GIVEN. ENVIRONMENTAL SAFETY CHECKS DONE. BED ALARM ON. WILL CONTINUE TO MONITOR Q15 MIN ROUNDS FOR SAFETY AND BEHAVIOR.
[2020-05-26 19:55] VITALS: BP 136/75
[2020-05-26 20:00] VITALS: BP 136/75
--- NOTE | 2020-05-26 20:25 | NUR ---
GPS RN NOTE CALLED EPIC MD & LEFT A MESSAGE WITH EXCHANGE FOR MED RECONCILIATION. WAITING FOR MD TO CALL BACK.
[2020-05-26] MEDS ORDERED: BLOOD SUGAR DIAGNOSTIC 1 EACH STRIP IN ONE (20:30)
--- NOTE | 2020-05-26 21:38 | NUR ---
GPS RN NOTE: ANXIETY PATIENT VERBALIZED THAT HE IS RESTLESS & ANXIOUS, REQUESTED TO GET ATIVAN AT THIS TIME. PRN ATIVAN 0.5 MG 1 TAB PO GIVEN. VITALS ARE 146/81, 85, 20, 97.7, 94% ON RA. WILL CONTINUE TO MONITOR FOR ANY CHANGES.
--- NOTE | 2020-05-26 21:40 | NUR ---
GPS RN NOTE CALLED EPIC MD & LEFT A MESSAGE WITH EXCHANGE FOR MED RECON. WAITING FOR MD TO CALL BACK.
--- NOTE | 2020-05-26 22:15 | NUR ---
GPS RN NOTE CALLED BACK & ASSURED THAT MED RECON WILL BE DONE.
--- NOTE | 2020-05-26 22:30 | NUR ---
MED RECON DONE BY DR. HIRSCH.
--- NOTE | 2020-05-26 22:45 | NUR ---
GPS RN NOTE CALLED AFTER HOURS PHARMACY TO VERIFY POTASSIUM 40 MEQ ONCE ORDER ORDERED BY .
[2020-05-26] MEDS ORDERED: POTASSIUM CHLORIDE 20 MEQ TAB.PRT.SR PO ONE (23:00)
[2020-05-26] MEDS: oxyCODONE IR immediate release 5 MG PO PRN (23:48)
--- NOTE | 2020-05-26 23:48 | NUR ---
GPS RN NOTE: LOWER BACK PAIN PATIENT HAS C/O LOWER BACK PAIN 05/18, ONLY WANTED TO TAKE OXYCODONE, PATIENT WAS OFFERED TYLENOL TO SEE IF IT GIVES ANY RELIEF BUT PATIENT STATED," TYLENOL DOES NOT DO ANYTHING TO ME, I NEED OXYCODONE ONLY, I HAVE BEEN TAKING IT FOR A YEAR." EXPLAINED TO THE PATIENT ABOUT RISKS BUT PATIENT INSISTED ON TAKING OXYCODONE. VITALS ARE 118/ 64, 74, 18, 94% AT RA. PRN OXYCODONE 15 MG PO GIVEN. WILL MONITOR CLOSELY FOR ANY CHANGES.
--- NOTE | 2020-05-27 04:17 | NUR ---
GPS RN NOTE: PATIENT'S PERSONAL WALKER PUT IN CLEAN UTILITY ROOM, LABELED IT.
--- NOTE | 2020-05-27 06:50 | NUR ---
GPS RN NOTE PATIENT SLEPT WELL AT NIGHT. NO GILLIAN NOTED. PATIENT'S MRSA SWAB RESULTS PENDING SINCE IT WAS COLLECTED IN MS 2 UNIT ON 05/25/20. WAITING FOR RESULTS. WILL INFORM AM RN TO FOLLOW UP WITH LAB IF ANOTHER SPECIMEN NEEDS TO BE COLLECTED OR NOT DUE TO ADMISSION AT GPS UNIT. CHARGE NURSE MADE AWARE. WILL ENDORSE TO AM RN FOR CONTINUITY OF CARE.
[2020-05-27 07:22] LABS: CALCIUM, SERUM 8.7 mg/dL (8.5-10.1); POTASSIUM 4.8 mmol/L (3.5-5.1)
[2020-05-27] MEDS: oxyCODONE IR immediate release 5 MG PO PRN ×2 (07:55→16:04)
[2020-05-27 08:00] VITALS: BP 149/87
--- NOTE | 2020-05-27 08:17 | NUR ---
GPS/RN-NOTES PATIENT C/O 8/10 LOWER BACK PAIN AND REQUESTING OXYCODONE. OXYCODONE 15MG P.O GIVEN PRN ORDER. WILL CONT. MONITORING FOR EFFECTIVENESS.
[2020-05-27] MEDS: AMLODIPINE BESYLATE 5 MG TABLET PO SCH (08:51)
[2020-05-27] MEDS: GABAPENTIN 300 MG CAPSULE PO SCH ×3 (08:52→17:09)
--- NOTE | 2020-05-27 10:37 | NUR ---
WOUND CARE CONSULT: PT PRESENTS WITH SCARRING ON LOWER LEGS, PRESENT ON ADMISSION. PT IS AMBULATORY AND CONTINENT. WILL SEE PRN.
[2020-05-27] MEDS: QUETIAPINE FUMARATE 100 MG TABLET PO SCH ×2 (12:46→21:45)
[2020-05-27] MEDS: LISINOPRIL (20MG) 20 MG TABLET PO SCH (14:41)
[2020-05-27 16:00] VITALS: BP 149/81
[2020-05-27 19:51] VITALS: BP 140/77
[2020-05-27] MEDS: TEMAZEPAM 7.5 MG CAPSULE PO PRN (22:18)
--- NOTE | 2020-05-27 22:21 | NUR ---
GPS RN NOTE: INSOMNIA PATIENT WAS COMPLAINING OF DIFFICULTY SLEEPING, STATED "I NEED TO TAKE SOMETHING FOR SLEEP WHAT DO I HAVE FOR THAT". CHECKED PATIENTS VITAL, VITALS SIGNS WERE STABLE, ADMINISTERED RESTORIL PRN AT 2218. WILL REASSESS AND CONTINUE TO MONITOR Q15 MIN FOR SAFETY AND BEHAVIOR.
[2020-05-28] MEDS: oxyCODONE IR immediate release 5 MG PO PRN ×4 (00:46→22:35)
--- NOTE | 2020-05-28 00:53 | NUR ---
GPS RN NOTE: PAIN PT COMPLAINED OF 8/10 LOWER BACK PAIN, REQUESTED HIS PRN OXYCODONE. PATIENTS VITAL SIGNS STABLE, BP: 126/69, HR: 82, RR: 19, O2: 98 RA. ADMINISTERED OXYCODONE PRN @ 0046, WILL REASSESS AND CONTINUE TO MONITOR Q15 MIN FOR SAFETY AND BEHAVIOR.
[2020-05-28 08:00] VITALS: BP 150/88
--- NOTE | 2020-05-28 08:20 | NUR ---
GPS/RN-NOTES PATIENT C/O 8/10 LOWER BACK PAIN AND REQUESTING OXYCODONE. OXYCODONE 15MG P.O GIVEN PRN ORDER. WILL CONT. MONITORING FOR EFFECTIVENESS.
[2020-05-28] MEDS: QUETIAPINE FUMARATE 100 MG TABLET PO SCH ×2 (09:13→21:13)
[2020-05-28] MEDS: GABAPENTIN 300 MG CAPSULE PO SCH ×3 (09:13→17:12)
[2020-05-28] MEDS: AMLODIPINE BESYLATE 5 MG TABLET PO SCH (09:13)
[2020-05-28] MEDS: LISINOPRIL (20MG) 20 MG TABLET PO SCH (09:14)
--- NOTE | 2020-05-28 10:55 | NUR ---
Initial Discharge Plan: Pt is currently homeless and would like to be discharged to a SNF. SW will work with the pt and the MD regarding appropriate discharge planning. SW will form a safe and proper discharge.
[2020-05-28 16:00] VITALS: BP 159/75
--- NOTE | 2020-05-28 16:26 | NUR ---
GPS/RN-NOTES PATIENT C/O 8/10 LOWER BACK PAIN AND REQUESTING OXYCODONE. OXYCODONE 15MG P.O GIVEN PRN ORDER. WILL CONT. MONITORING FOR EFFECTIVENESS.
[2020-05-28 20:06] VITALS: BP 136/69
[2020-05-28] MEDS: TEMAZEPAM 7.5 MG CAPSULE PO PRN (21:51)
--- NOTE | 2020-05-28 21:57 | NUR ---
GPS RN NOTE: INSOMNIA PT STATED "I NEED MY SLEEPING PILL SO I CAN SLEEP CAN I HAVE IT". PTS VITAL SIGNS BP: 148/85, RR: 20, O2: 98% RA, HR: 75, ADMINISTERED RESTORIL PRN @ 2151. WILL REASSESS AND CONTINUE TO MONITOR Q15 MIN FOR SAFETY AND BEHAVIOR.
--- NOTE | 2020-05-28 22:36 | NUR ---
GPS RN NOTE: PAIN PATIENT COMPLAINED OF AN 8/10 LOWER BACK PAIN AND REQUESTED HIS OXYCODONE. PTS VITALS: BP: 136/75, HR:99, RR: 18, O2: 98% RA. ADMINISTERED PRN OXYCODONE @ 2235. WILL REASSESS AND CONTINUE TO MONITOR Q15MIN FOR SAFETY AND BEHAVIOR.
[2020-05-29] MEDS: oxyCODONE IR immediate release 5 MG PO PRN ×4 (04:41→23:03)
--- NOTE | 2020-05-29 04:41 | NUR ---
GPS RN NOTE: PAIN PT WOKE UP AND COMPLAINED OF LOWER BACK PAIN 05/18 STATED "CAN I GET MY PAIN MEDS". VITALS: BP: 158/87, HR: 86, O2: 99 RA, RR: 19. ADMIN OXYCODONE PRN @ 0441. WILL REASSESS AND CONTINUE TO MONITOR Q15 MIN FOR SAFETY AND BEHAVIOR.
--- NOTE | 2020-05-29 06:40 | NUR ---
GPS RN NOTE: BLOOD DRAW REFUSAL PT REFUSED BLOOD DRAW THIS MORNING, WILL PASS IT ON TO AM SHIFT. EXPLAINED TO THE PT 3X ABOUT THE BENEFITS OF ALLOWING THE BLOOD DRAW. LAB SAID WILL TRY AGAIN LATER ON DURING THE DAY. WILL CONTINUE TO MONITOR Q15 MIN FOR SAFETY AND BEHAVIOR
[2020-05-29 08:00] VITALS: BP_SYST 112; BP_DIAS 59; BP_DIAS 69
[2020-05-29] MEDS: GABAPENTIN 300 MG CAPSULE PO SCH ×3 (08:29→16:35)
[2020-05-29] MEDS: QUETIAPINE FUMARATE 100 MG TABLET PO SCH ×2 (08:29→21:04)
[2020-05-29] MEDS: LISINOPRIL (20MG) 20 MG TABLET PO SCH (08:30)
[2020-05-29] MEDS: AMLODIPINE BESYLATE 5 MG TABLET PO SCH (08:30)
[2020-05-29 09:26] LABS: EOSINOPHILS % (AUTO) 7.3 % (0.0-6.0); HEMATOCRIT 46 % (39-51); HEMOGLOBIN 15.3 g/dL (13.5-17.5); LYMPHOCYTES # (AUTO) 1.2 /CMM (0.8-4.8); LYMPHOCYTES % (AUTO) 33.7 % (20.0-44.0); MEAN CORPUSCULAR HGB CONC 33 g/dl (31.0-36.0); MEAN CORPUSCULAR VOLUME 87 fL (80-96); MONOCYTES # (AUTO) 0.4 /CMM (0.1-1.30); MONOCYTES % (AUTO) 11.1 % (2.0-12.0); NEUTROPHILS # (AUTO) 1.7 /CMM (1.8-8.9); NEUTROPHILS % (AUTO) 46.9 % (43.0-81.0); PLATELET COUNT (AUTO) 202 /CMM (150-450); RED BLOOD CELL COUNT(AUTO) 5.26 MIL/uL (4.5-6.0); WHITE BLOOD COUNT (AUTO) 3.5 K/uL (4.3-11.0)
[2020-05-29 09:40] LABS: ALBUMIN 3.2 g/dL (3.4-5.0); BILIRUBIN,TOTAL 0.5 mg/dL (0.2-1.0); CREATININE 1.1 mg/dL (0.6-1.3); MAGNESIUM 1.9 mg/dL (1.8-2.4); PHOSPHORUS 2.6 mg/dL (2.5-4.9); POTASSIUM 4.2 mmol/L (3.5-5.1); TOTAL PROTEIN, SERUM 7.5 g/dL (6.4-8.2)
--- NOTE | 2020-05-29 10:58 | NUR ---
GPS/RN-NOTES PATIENT C/O 8/10 LOWER BACK PAIN AND REQUESTING OXYCODONE. OXYCODONE 15MG P.O GIVEN PRN ORDER. WILL CONT. MONITORING FOR EFFECTIVENESS.
--- NOTE | 2020-05-29 16:04 | NUR ---
SNF Referral: SUZANNA faxed a referral to [facility] with attention to Vargas to the fax number: [phone].
[2020-05-29 16:06] VITALS: BP 135/82
--- NOTE | 2020-05-29 16:58 | NUR ---
GPS/RN-NOTES PATIENT C/O 8/10 LOWER BACK PAIN AND REQUESTING OXYCODONE. OXYCODONE 15MG P.O GIVEN PRN ORDER.
[2020-05-29 20:08] VITALS: BP 144/76
[2020-05-29] MEDS: TEMAZEPAM 7.5 MG CAPSULE PO PRN (21:41)
--- NOTE | 2020-05-29 21:42 | NUR ---
GPS RN NOTE: INSOMNIA PT COMPLAINED OF INSOMNIA, ASKED FOR RESTORIL, VITALS: BP: 144/76, HR:65, O2: 99RA, RR: 18, WILL REASSESS AND CONTINUE TO MONITOR Q15MIN FOR SAFETY AND BEHAVIOR.
--- NOTE | 2020-05-29 23:04 | NUR ---
GPS RN NOTE: PAIN PT COMPLAINED OF 8/10 LOWER BACK PAIN PT STATED MY BACK HURTS "I NEED TO TAKE MY OXY NOW CAN I HAVE IT". VITAL SIGNS STABLE, ADMINISTERED OXYCODONE PRN @ 2303. WILL CONTINUE TO MONITOR Q15MIN FOR SAFETY AND BEHAVIOR.
[2020-05-30] MEDS: oxyCODONE IR immediate release 5 MG PO PRN ×5 (05:11→22:48)
--- NOTE | 2020-05-30 05:12 | NUR ---
GPS RN NOTE: PAIN PT STATED HE WAS HAVING 8/10 PACK AND REQUESTED HIS OXYCODONE, BP: 160/93, HR: 71, RR:18, O2:99 RA, ADMINISTERED OXYCODONE PRN @0511. WILL REASSESS AND CONTINUE TO MONITOR Q15MIN FOR SAFETY AND BEHAVIOR.
[2020-05-30 08:00] VITALS: BP 124/70
[2020-05-30] MEDS: GABAPENTIN 300 MG CAPSULE PO SCH ×3 (09:11→16:31)
[2020-05-30] MEDS: QUETIAPINE FUMARATE 100 MG TABLET PO SCH ×2 (09:12→22:17)
[2020-05-30] MEDS: AMLODIPINE BESYLATE 5 MG TABLET PO SCH (09:12)
[2020-05-30] MEDS: LISINOPRIL (20MG) 20 MG TABLET PO SCH (09:12)
--- NOTE | 2020-05-30 10:51 | NUR ---
RN NOTE: PAIN PT C/O 05/18 LOWER BACK PAIN. MEDICATED WITH OXYCODONE PRN
--- NOTE | 2020-05-30 11:53 | NUR ---
RN NOTE: PAIN PT REPORTS 4/10 BACK PAIN AFTER MEDICATION ADMINISTRATION
[2020-05-30 16:00] VITALS: BP 117/63
--- NOTE | 2020-05-30 16:46 | NUR ---
RN NOTE: PAIN PT C/O 05/18 LOWER BACK PAIN. MEDICATED WITH OXYCODONE PO PRN
[2020-05-30 20:09] VITALS: BP 134/60
--- NOTE | 2020-05-30 22:48 | NUR ---
GPS RN NOTE: PT REQUESTED FOR PAIN MEDICATION FOR BACK PAIN LEVEL OF 10. PT WAS RESTLESS, GUARDING SITE. OXY Ir 5MG 3TABS GIVEN PO PRN ORDERED AT 2246. PT CURRENTLY SITTING IN W/C IN ROOM. WILL CONTINUE TO MONITOR.
[2020-05-31] MEDS: TEMAZEPAM 7.5 MG CAPSULE PO PRN (00:27)
[2020-05-31] MEDS: oxyCODONE IR immediate release 5 MG PO PRN ×4 (05:08→23:32)
--- NOTE | 2020-05-31 05:19 | NUR ---
GPS RN NOTE: PT WOKE UP AT ABOUT 0500 ASKING FOR PAIN MEDICATION FOR BACK AND KNEE PAIN. RATES PAIN LEVEL 8/10. OXY Ir 5MG 3TABS/15MG GIVEN PO PRN ORDERED. PT BACK IN BED. WILL CONTINUE TO MONITOR.
--- NOTE | 2020-05-31 06:48 | NUR ---
GPS RN NOTE: PT SLEEPING COMFORTABLY, EASILY AROUSED. DENIES ANY PAIN AT THIS TIME. NO S/S OF ANY DISTRESS. WILL CONTINUE TO MONITOR AND ENDORSE TO AM SHIFT.
[2020-05-31 08:00] VITALS: BP 112/62
[2020-05-31] MEDS: LISINOPRIL (20MG) 20 MG TABLET PO SCH (08:36)
[2020-05-31] MEDS: AMLODIPINE BESYLATE 5 MG TABLET PO SCH (08:36)
[2020-05-31] MEDS: GABAPENTIN 300 MG CAPSULE PO SCH ×3 (08:37→16:47)
[2020-05-31] MEDS: QUETIAPINE FUMARATE 100 MG TABLET PO SCH ×2 (08:37→21:41)
--- NOTE | 2020-05-31 11:05 | NUR ---
RN NOTE: PAIN PT C/O 05/18 LOWER BACK PAIN. REQUESTING PAIN MEDICATION. MEDICATED WITH OXY PO PRN
--- NOTE | 2020-05-31 12:05 | NUR ---
RN NOTE: PAIN F/U PT REPORTS DECREASE OF BACK PAIN 12/07O
[2020-05-31 16:00] VITALS: BP 123/71
--- NOTE | 2020-05-31 17:12 | NUR ---
RN NOTE: PAIN PT C/O 05/18 BACK PAIN. REQUESTING PAIN MEDICATION MEDICATED WITH OXY IR PO PRN
[2020-05-31 20:01] VITALS: BP 124/75
--- NOTE | 2020-05-31 22:00 | NUR ---
RN NOTES: REFUSED SKIN REASSESSMENT PT. REFUSED WEEKLY SKIN REASSESSMENT AND PICTURES TO BE TAKEN , ENCOURAGED X3 , RISKS BENEFITS EXPLINED STILL REFUSED, PER PT. MY SKIN IS FINE , WILL CONTINUE WITH PLAN OF CARE.
--- NOTE | 2020-05-31 23:32 | NUR ---
RN NOTE: PAIN PT C/O 05/18 LOWER BACK PAIN. REQUESTING PAIN MEDICATION ,MEDICATED WITH OXY IR PO PRN GIVEN PER PT. REQUEST , WILL CONTINUE TO MONITOR.
[2020-06-01] MEDS: oxyCODONE IR immediate release 5 MG PO PRN ×3 (05:45→18:15)
[2020-06-01 08:00] VITALS: BP 157/79
[2020-06-01] MEDS: AMLODIPINE BESYLATE 5 MG TABLET PO SCH (09:08)
[2020-06-01] MEDS: QUETIAPINE FUMARATE 100 MG TABLET PO SCH ×2 (09:08→21:35)
[2020-06-01] MEDS: GABAPENTIN 300 MG CAPSULE PO SCH ×3 (09:08→16:31)
[2020-06-01] MEDS: LISINOPRIL (20MG) 20 MG TABLET PO SCH (09:09)
[2020-06-01 16:00] VITALS: BP 121/68
[2020-06-01 19:51] VITALS: BP 160/94
[2020-06-01] MEDS: TEMAZEPAM 7.5 MG CAPSULE PO PRN (20:08)
[2020-06-02] MEDS: oxyCODONE IR immediate release 5 MG PO PRN ×2 (00:32→08:14)
[2020-06-02 08:00] VITALS: BP 131/66
--- NOTE | 2020-06-02 08:08 | NUR ---
Social Work Discharge Note: Patient will be discharged to custodial facility to [facility] [address] [place] [address]; ([phone]) via Ambulance transportation at 12:00pm. Retort Pre Cooker spoke with Amber, Tag Stringer at [facility] ([phone]) who stated patient will be accepted at facility today. Patient is alert and oriented x2-3, and is not able to plan for self-care at this time, but is willing to accept care provided for him at the facility. Patient denies any suicidal or homicidal ideations. Patient is aware and agreeable with discharge plans. Patients brother Greg ([phone]) is aware and agreeable with discharge plans. Patient will continue to follow-up with (psychiatrist) Dr. Cohn and (pig machine operator helper) Dr. Marrero. Patient presents with euthymic mood and congruent affect.
[2020-06-02] MEDS: GABAPENTIN 300 MG CAPSULE PO SCH ×2 (08:14→12:04)
[2020-06-02 08:15] VITALS: BP 131/66
[2020-06-02] MEDS: QUETIAPINE FUMARATE 100 MG TABLET PO SCH (08:15)
[2020-06-02] MEDS: LISINOPRIL (20MG) 20 MG TABLET PO SCH (08:15)
[2020-06-02] MEDS: AMLODIPINE BESYLATE 5 MG TABLET PO SCH (08:15)
--- NOTE | 2020-06-02 09:00 | NUR ---
RN NOTE- PT IN [place] IN [facility] INTERACTIVE ENGAGES NEEDS ATTENDED PO INTAKE GOOD MED COMPLIANT PAIN DECREASED W ANALGESICS DENIES SI HI AH VH FOCUS ON DC TODAY
--- NOTE | 2020-06-02 11:53 | NUR ---
RN NOTE- ATTEMPTED TO CALL REPORT TWICE TO LYNETTE SCHMITT. BOTH TIMES PLACED ON HOLD FOR GREATER THAN FIVE MINUTES. REPORT NOT GIVEN YET AT THIS TIME.
--- NOTE | 2020-06-02 12:30 | NUR ---
RN NOTE- REPORT PHONED TO DYAN AT [facility]
--- NOTE | 2020-06-02 13:30 | NUR ---
RN DC NOTE- PT DC AT THIS TIME TO [facility] IN [facility] ER. REPORT PHONED TO DYAN AT FACILITY. AFTERCARE AND RX REVIEWED W DYAN AND ALSO W PT. VERBALIZED UNDERSTANDING STATED. VS STABLE, PT ALER6T ORIENTED TO PERSON PLACE PURPOSE. DENIES SI HI AH VH. RX FROM PHARMACY RETURNED TO PT. VALUABLES RETURNED TO PT AND SIGNED FOR. SKIN PHOTOS REFUSED BY PT. ESCORTED OFF UNIT BY THIS RN VIA GURNEY AND AMBULANCE STAFF.
== END 2020-06-02 13:30 | DRG 885 ==
LOC: GPS 18:32
PROVIDERS: ADMIT Psychiatry & Neurology Psychosomatic Medicine; ATTEND Nurse Practitioner Acute Care
DX: F20.9 Schizophrenia, unspecified (principal); N17.0 Acute kidney failure with tubular necrosis; R45.851 Suicidal ideations; G93.40 Encephalopathy, unspecified; F29 Unspecified psychosis not due to a substance or known physiological condition; E87.6 Hypokalemia; F41.9 Anxiety disorder, unspecified; F32.9 Major depressive disorder, single episode, unspecified; M19.90 Unspecified osteoarthritis, unspecified site; I10 Essential (primary) hypertension; G62.9 Polyneuropathy, unspecified; Z59.0 Homelessness; F19.90 Other psychoactive substance use, unspecified, uncomplicated; E86.9 Volume depletion, unspecified; M48.00 Spinal stenosis, site unspecified; Z72.0 Tobacco use; Z79.899 Other long term (current) drug therapy; G89.29 Other chronic pain
CPT/HCPCS: 36415; 80048-TC; 80053-TC; 80061-TC; 82962-TC; 83735-TC; 84100-TC; 85025-TC; 97116-TC; 97530-TC

== ENCOUNTER 2020-07-31 17:04 | Inpatient (IN) | payer MEDICARE, OTHER ==
[~2020-07-31] VITALS: Ht 188 cm; Wt 122.9 kg
[~2020-07-31 17:04] MED LIST changes: -CLON0.1T PO; -CLON1TAB12 PO; -LISI40TA4 PO; -QUET200T PO; -QUET300T2 PO; -TEMA30CA5 PO
--- NOTE | 2020-07-31 17:30 | NUR ---
BED 10 PT BIB SELF C/O SUICIDAL IDEATION AND HEARINGVOICES. STATES THAT HE WANTS TO GET RUN OVER BY THE TRACKS. VS CHECKED AWAITING MD OLSON.
[2020-07-31] MEDS ORDERED: oxyCODONE/APAP (5/325 MG) 1 UDTAB TABLET PO ONE (18:00)
[2020-07-31 18:24] LABS: APPEARANCE,URINE CLEAR (CLEAR); BILIRUBIN,URINE NEGATIVE (NEGATIVE); BLOOD, URINE NEGATIVE Ery/uL (NEGATIVE); COLOR,URINE YELLOW (YELLOW); KETONES,URINE NEGATIVE (NEGATIVE); LEUKOCYTE ESTERASE ,URINE NEGATIVE (NEGATIVE); NITRITE, URINE NEGATIVE (NEGATIVE); PROTEIN,URINE NEGATIVE (NEGATIVE); UGLUCOSE NEGATIVE (NEGATIVE)
--- NOTE | 2020-07-31 18:25 | NUR ---
covid swab test collected and sent to lab
[2020-07-31] MEDS ORDERED: oxyCODONE/APAP (5/325 MG) 1 UDTAB TABLET ONE (18:43)
--- NOTE | 2020-07-31 19:02 | NUR ---
BED 220
--- NOTE | 2020-07-31 19:44 | NUR ---
PT ASKED FOR HIS OXYCODONE FOR SAFEKLEEPING AT THE PHARMACY. 23 TABS GIVEN TO PHARMACY
[2020-07-31 19:55] LABS: CALCIUM, SERUM 8.8 mg/dL (8.5-10.1); CARBON DIOXIDE 31 mmol/L (21-32); CHLORIDE 106 mmol/L (98-107); CREATININE 1.2 mg/dL (0.6-1.3); GLUCOSE 67 mg/dL (74-106); POTASSIUM 3.6 mmol/L (3.5-5.1); SODIUM SERUM 146 mmol/L (136-145); UREA NITROGEN, BLOOD 14 mg/dL (7-18)
--- NOTE | 2020-07-31 20:05 | NUR ---
[facility]LY [facility] [phone]
[2020-07-31 20:07] LABS: ALANINE AMINOTRANSFERASE 43 U/L (12-78); ALBUMIN 3.9 g/dL (3.4-5.0); ALCOHOL, BLOOD < 3 mg/dL (0-0); ALKALINE PHOSPHATASE 126 U/L (46-116); ASPARTATE AMINOTRANSFERASE 31 U/L (15-37); BILIRUBIN,DIRECT 0.1 mg/dL (0.0-0.2); BILIRUBIN,TOTAL 0.4 mg/dL (0.2-1.0); TOTAL PROTEIN, SERUM 8.3 g/dL (6.4-8.2)
[2020-07-31 20:08] LABS: ACETAMINOPHEN < 2 ug/ml (10-30)
[2020-07-31 20:39] LABS: BASOPHILS % (AUTO) 0.7 % (0.0-2.0); EOSINOPHILS % (AUTO) 4.3 % (0.0-6.0); HEMATOCRIT 45 % (39-51); HEMOGLOBIN 15.1 g/dL (13.5-17.5); LYMPHOCYTES # (AUTO) 2.1 /CMM (0.8-4.8); LYMPHOCYTES % (AUTO) 41.4 % (20.0-44.0); MEAN CORPUSCULAR HGB CONC 34 g/dl (31.0-36.0); MEAN CORPUSCULAR VOLUME 88 fL (80-96); MONOCYTES # (AUTO) 0.7 /CMM (0.1-1.30); MONOCYTES % (AUTO) 13.3 % (2.0-12.0); NEUTROPHILS % (AUTO) 40.3 % (43.0-81.0); PLATELET COUNT (AUTO) 176 /CMM (150-450); RED BLOOD CELL COUNT(AUTO) 5.13 MIL/uL (4.5-6.0)
--- NOTE | 2020-07-31 21:25 | NUR ---
PER LAB RAMYA COVID TEST NEGATIVE.
--- NOTE | 2020-07-31 21:39 | NUR ---
HOLD WRITTEN ON 2131
--- NOTE | 2020-07-31 21:55 | NUR ---
REPORT GIVEN TO YASHIRA MONTERO
--- NOTE | 2020-07-31 22:28 | NUR ---
PT TRANSFERRED VIA [facility]
--- NOTE | 2020-07-31 22:30 | NUR ---
GPS ADMISSION NOTE: RECEIVED PT FROM ER. PT. ARRIVED AT 2230 VIA GURNEY WITH ER STAFF. PT ADMITTED ON A 5150 HOLD FOR DTS. PER HOLD PT IS HEARING VOICES FOR THE PAST TWO DAYS TELLING HIM TO KILL HIMSELF WITH A PLAN TO WALK INTO TRAFFIC. THE HOLD WAS REVIEWED AND DOCUMENTAION OF HOLD APPEARS TO REFLECT PATIENT. UPON FACE TO FACE ASSESSMENT PT. IS NOTED TO BEING A/O X3, DISHEVELED, DEPRESSED, FLAT AFFECT, COOPERATIVE. PT IS CURRENTLY SLEEPING IN BED WITH NO S/S OF DISTRESS, SOB. . PT SIGNED PAPERWORK. PT WAS ADVISED OF HOLD AND GIVEN PATIENT RIGHTS HANDBOOK. UNDER PSYCHIATRIC CARE OF [facility] AND MEDICAL CARE OF [facility]. BELONGINGS WERE INVENTORIED AND CHECKED FOR CONTRABAND. ALL CONTRABAND REMOVED AND STORED IN HALLWAY LOCKER. SKIN ASSESSMENT COMPLETED.EDUCATED ON PATIENT CALL LIGHT. SIDE RAILS UP 2 , LOCKED AND LOW POSITION. WILL CONTINUE TO MONITOR.
--- NOTE | 2020-07-31 22:35 | NUR ---
GPS RN NOTE: PER INTAKE DR. FATIMA WAS ASSIGNED TO PATIENT BUT PER ER NURSE REPORT, CHARLY LEVIN AND ER NURSEDON STATED THAT DR. MCPHERSON WILL BE ASSIGNED TO THE PATIENT PSYCH DOCTOR. CHARGE NURSE CALLED DR. MCPHERSON, NOTIFIED & MD ACCEPTED THE PATIENT. NEW ORDERS NOTED & CARRIED OUT.
[2020-07-31] MEDS ORDERED: ACETAMINOPHEN 325 MG TABLET PO PRN (23:00)
[2020-07-31] MEDS ORDERED: MAG HYDROX/AL HYDROX/SIMETH 30 ML UDC PO PRN (23:00)
[2020-07-31] MEDS ORDERED: BLOOD SUGAR DIAGNOSTIC 1 EACH STRIP IN ONE (23:00)
[2020-07-31] MEDS ORDERED: MAGNESIUM HYDROXIDE 30 ML UDC PO PRN (23:00)
[2020-08-01 00:51] VITALS: BP 159/72
[2020-08-01] MEDS ORDERED: hydrALAZINE HCL 25 MG TABLET PO PRN (01:30)
[2020-08-01] MEDS: LORAZEPAM 0.5 MG TABLET PO PRN ×2 (02:19→12:00)
[2020-08-01 07:20] LABS: CHOLESTEROL 118 mg/dL (<200); HDL CHOLESTEROL 62 mg/dL (40-60); LDL 50 mg/dL (0-99); TRIGLYCERIDES 58 mg/dL (30-150)
[2020-08-01 07:21] LABS: BILIRUBIN,TOTAL 0.4 mg/dL (0.2-1.0); CALCIUM, SERUM 8.1 mg/dL (8.5-10.1); POTASSIUM 3.9 mmol/L (3.5-5.1); TOTAL PROTEIN, SERUM 6.7 g/dL (6.4-8.2)
[2020-08-01 08:00] VITALS: BP 127/73
[2020-08-01] MEDS: GABAPENTIN 300 MG CAPSULE PO SCH ×3 (08:58→17:08)
[2020-08-01] MEDS: AMLODIPINE BESYLATE 5 MG TABLET PO SCH (08:59)
[2020-08-01] MEDS: oxyCODONE IR immediate release 5 MG PO PRN ×2 (08:59→17:41)
--- NOTE | 2020-08-01 08:59 | NUR ---
RN NOTES ADMINISTERED OXI IR 30 ML PO PRN FOR LOWER BACK PAIN 05/18 PER PATIENT REQUEST, V/S TAKEN BP 127/73, P-63, R-19. CONTINUED MONITORING.
--- NOTE | 2020-08-01 12:00 | NUR ---
RN NOTES ADMINISTERED ATIVAN 0.5 MG PO PRN FOR ANXIETY PER PATIENT REQUEST, CONTINUED MONITORING.
[2020-08-01] MEDS ORDERED: ONDANSETRON 4 MG TAB.RAPDIS PO PRN (15:30)
--- NOTE | 2020-08-01 15:40 | NUR ---
rn notes administered zofran 4mg po prn for nausea and vomiting.
[2020-08-01 16:00] VITALS: BP 163/98
--- NOTE | 2020-08-01 17:40 | NUR ---
RN NOTES ADMINISTERED APRESOLINE 25 MG PO PRN FOR BP 189/95, P-65, AND OXY IR 15 MG PO PRN FOR LOWER BACK PAIN 8/10 PER PAIN SCALE. WILL CONTINUED MONITORING.
[2020-08-01 17:45] VITALS: BP 189/95
[2020-08-01 21:06] VITALS: BP 172/83
[2020-08-01] MEDS: QUETIAPINE FUMARATE 100 MG TABLET PO SCH (21:46)
[2020-08-01] MEDS: TRAZODONE 50 MG TABLET PO SCH (21:46)
[2020-08-02] MEDS: oxyCODONE IR immediate release 5 MG PO PRN ×3 (04:16→21:37)
--- NOTE | 2020-08-02 04:17 | NUR ---
GPS RN NOTE: AT 0416 PT WAS GIVEN OXY IR 5MG 3TABS/15MG PO PRN ORDERED FOR LOWER BACK PAIN COMPLIANT. PT RATES PAIN LEVEL 7/10. PT CURRENTLY LAYING ON BED. WILL CONTINUE TO MONITOR AND REASSESS.
--- NOTE | 2020-08-02 06:50 | NUR ---
GPS RN CLOSING NOTES: PT LAYING ON BED SLEEPING INTERMITTENTLY. SLEPT 8HR THIS SHIFT. NO S/S OF DISTRESS. RESPIRATION EVEN AND UNLABORED WITH EQUAL RISE AND FALL OF THE CHEST ON ROOM AIR. ALL PT CARE NEEDS MET ANTICIPATED. BED IS LOCKED AND IN LOWEST POSITION. WILL CONTINUE TO MONITOR AND ENDORSE TO AM SHIFT
[2020-08-02 08:00] VITALS: BP 133/73
[2020-08-02] MEDS: AMLODIPINE BESYLATE 5 MG TABLET PO SCH (08:45)
[2020-08-02] MEDS: GABAPENTIN 300 MG CAPSULE PO SCH ×3 (08:45→16:32)
[2020-08-02] MEDS: QUETIAPINE FUMARATE 100 MG TABLET PO SCH ×2 (08:59→22:43)
--- NOTE | 2020-08-02 12:17 | NUR ---
GPS RN NOTE: PATIENT COMPLIANT WITH LOWER BACK PAIN GIVEN OXY IR 5MG 3TABS/15MG PO PRN ORDERED FOR LOWER BACK PAIN COMPLIANT. PT RATES PAIN LEVEL 8/10.WILL CONTINUE TO MONITOR AND REASSESS.
[2020-08-02 16:00] VITALS: BP 127/69
[2020-08-02 20:28] VITALS: BP 129/83
--- NOTE | 2020-08-02 21:40 | NUR ---
GPS RN NOTE: PATIENT COMPLIANT WITH LOWER BACK PAIN. PT RATES PAIN LEVEL 8/10. OXY IR 5MG 3TABS/15MG PO PRN ORDERED AT 2136 FOR LOWER BACK PAIN COMPLIANT. WILL CONTINUE TO MONITOR AND REASSESS.
[2020-08-02] MEDS: TRAZODONE 50 MG TABLET PO SCH (22:43)
[2020-08-03] MEDS: TEMAZEPAM 7.5 MG CAPSULE PO PRN (00:15)
--- NOTE | 2020-08-03 00:16 | NUR ---
GPS RN NOTE: PT ASKED FOR RESTORIL D/T INSOMNIA. RESTORIL 7.5MG 1 CAP GIVEN PO ORDERED AT 0016. PT CURRENTLY LAYING ON BED AWAKE. WILL CONTINUE TO MONITOR AND ASSESS.
[2020-08-03] MEDS: oxyCODONE IR immediate release 5 MG PO PRN ×3 (05:40→21:46)
--- NOTE | 2020-08-03 06:18 | NUR ---
GPS RN CLOSING NOTES: PT LAYING ON BED SLEEPING INTERMITTENTLY. WEEKLY SKIN ASSESSMENT DONE, PICTURES TAKEN PLACED IN PATIENT CHART. PATIENT HAS BILATERAL LOWER EXTREMITIES +2 EDEMA, PRESENT ON ADMISSION. SLEPT 7HR THIS SHIFT. NO S/S OF DISTRESS. RESPIRATION EVEN AND UNLABORED WITH EQUAL RISE AND FALL OF THE CHEST ON ROOM AIR. ALL PT CARE NEEDS MET ANTICIPATED. BED IS LOCKED AND IN LOWEST POSITION. WILL CONTINUE TO MONITOR AND ENDORSE TO AM SHIFT.
[2020-08-03 08:00] VITALS: BP 139/82
[2020-08-03] MEDS: AMLODIPINE BESYLATE 5 MG TABLET PO SCH (08:31)
[2020-08-03] MEDS: GABAPENTIN 300 MG CAPSULE PO SCH ×3 (08:31→16:18)
[2020-08-03] MEDS: QUETIAPINE FUMARATE 100 MG TABLET PO SCH ×2 (08:32→21:47)
--- NOTE | 2020-08-03 14:06 | NUR ---
SUZANNA INITIAL DISCHARGE PLAN: Patient is currently homeless and would like to be discharged to a detention facility. SUZANNA will continue to work with patient and MD to ensure a safe and proper discharge plan.
--- NOTE | 2020-08-03 15:24 | NUR ---
COORDINATION OF CARE: SUZANNA faxed patient referral packet to [facility] at [address] [place] [address] ([phone]). Addendum: 08/05/20 at 1324 by GATO ESPINOZA Patient is accepted at [facility] ) )
[2020-08-03 16:00] VITALS: BP 113/58
[2020-08-03 20:07] VITALS: BP 158/75
[2020-08-03] MEDS: TRAZODONE 50 MG TABLET PO SCH (21:46)
[2020-08-04] MEDS: TEMAZEPAM 7.5 MG CAPSULE PO PRN ×2 (00:26→22:52)
[2020-08-04] MEDS: oxyCODONE IR immediate release 5 MG PO PRN ×3 (06:07→20:06)
--- NOTE | 2020-08-04 07:29 | NUR ---
GPS RN NOTE PATIENT IN BED RESTING COMFORTABLY. PATIENT IN NO ACUTE DISTRESS. NO SOB NOTED. PATIENT BREATHING IS EVEN AND UNLABORED. SAFETY PRECAUTIONS IN PLACE. PATIENT BED IS LOCKED AND IN LOWEST POSITION. BED ALARM IS ON. WILL CONTINUE TO MONITOR.
[2020-08-04 08:00] VITALS: BP 154/88
[2020-08-04] MEDS: GABAPENTIN 300 MG CAPSULE PO SCH ×3 (08:53→16:23)
[2020-08-04] MEDS: QUETIAPINE FUMARATE 100 MG TABLET PO SCH ×2 (08:54→21:17)
[2020-08-04] MEDS: AMLODIPINE BESYLATE 5 MG TABLET PO SCH (08:54)
--- NOTE | 2020-08-04 14:14 | NUR ---
RN NOTES ADMINISTERED OXY IR 15 MG PO PRN FOR GENERALIZED PAIN 05/18 PER PATIENT REQUEST, V/S TAKEN BP 143/76, P-80, R-19. CONTINUED MONITORING.
--- NOTE | 2020-08-04 15:49 | NUR ---
GPS RN NOTE INFORMED DR. DELUNA PATIENT REQUESTING OXY IR 15 MG Q8H PRN TO BE CHANGED TO Q6H FOR GENERALIZED BODY PAIN. PER MD OKAY TO CHANGE FREQUENCY OF OXY IR 15MG TO Q6H PO PRN.
[2020-08-04 16:00] VITALS: BP 155/73
--- NOTE | 2020-08-04 18:17 | NUR ---
GPS RN NOTE PATIENT IN BED RESTING COMFORTABLY. PATIENT IN NO ACUTE DISTRESS. NO SOB NOTED. PATIENT BREATHING IS EVEN AND UNLABORED. SAFETY PRECAUTIONS IN PLACE. EXPLAINED ALL DUE MEDS. PATIENT KEPT CLEAN, DRY, AND COMFORTABLE THROUGHOUT SHIFT. PATIENT BED IS LOCKED AND IN LOWEST POSITION. BED ALARM IS ON. WILL ENDORSE CARE TO PM SHIFT FOR GILLIAN.
--- NOTE | 2020-08-04 20:06 | NUR ---
GPS-RN NOTE: C/O LOWER BACK PAIN PATIENT C/O LOWER BACK PAIN ON A PAIN SCALE OF 9/10. ADMINISTERED OXYCODONE IR 15MG PO ORDERED. WILL CONTINUE TO REASSESS.
[2020-08-04 20:08] VITALS: BP 147/98
[2020-08-04] MEDS: TRAZODONE 50 MG TABLET PO SCH (21:17)
--- NOTE | 2020-08-04 22:53 | NUR ---
GPS-RN NOTE: INSOMNIA PATIENT C/O INABILITY TO SLEEP. ADMINISTERED RESTORIL 7.5MG PO ORDERED. WILL CONTINUE TO MONITOR.
[2020-08-05] MEDS: oxyCODONE IR immediate release 5 MG PO PRN ×4 (02:09→20:34)
[2020-08-05 08:00] VITALS: BP 150/74
[2020-08-05] MEDS: QUETIAPINE FUMARATE 100 MG TABLET PO SCH ×2 (08:04→21:50)
[2020-08-05] MEDS: GABAPENTIN 300 MG CAPSULE PO SCH ×3 (08:04→17:28)
[2020-08-05] MEDS: AMLODIPINE BESYLATE 5 MG TABLET PO SCH (08:04)
--- NOTE | 2020-08-05 13:22 | NUR ---
SW Substance Abuse Intervention: Patient was provided with a brief substance abuse intervention and referred to the following substance abuse programs: [facility] ([phone]); [facility] [address] [place] [address] ([phone]); [facility] [address] [facility] [address] ([phone]); [facility] ([phone]); [facility] ([phone]); [facility] ([phone]); [facility] ([phone]).
--- NOTE | 2020-08-05 13:24 | NUR ---
INDIVIDUAL INTERVENTION: SW met with patient to discuss discharge planning. Patient agreed with SNF placement at [facility] upon discharge.
--- NOTE | 2020-08-05 13:42 | NUR ---
PROBABLE CAUSE HEARING: Patient probable cause hearing was today and it was upheld for grave disability.
[2020-08-05 16:00] VITALS: BP 140/96
[2020-08-05 19:48] VITALS: BP 149/77
[2020-08-05 20:00] VITALS: BP 149/77
--- NOTE | 2020-08-05 20:34 | NUR ---
GPS RN NOTE: LOWER BACK PAIN PATIENT VERBALIZED C/O LOWER BACK PAIN 05/18 & WANTED TO TAKE OXY IR ONLY AT THIS TIME. PRN 15 MG OXY IR PO GIVEN. VITALS CHECKED & WNL. WILL CONTINUE TO MONITOR FOR ANY CHANGES.
[2020-08-05] MEDS: TRAZODONE 50 MG TABLET PO SCH (21:49)
[2020-08-06] MEDS: oxyCODONE IR immediate release 5 MG PO PRN ×4 (04:53→23:36)
--- NOTE | 2020-08-06 04:53 | NUR ---
GPS RN NOTE: LOWER BACK PAIN PATIENT VERBALIZED C/O LOWER BACK PAIN 05/18 & WANTED TO TAKE OXY IR ONLY AT THIS TIME. PRN 15 MG OXY IR PO GIVEN. WILL CONTINUE TO MONITOR FOR ANY CHANGES.
[2020-08-06 08:00] VITALS: BP 117/71
[2020-08-06] MEDS: AMLODIPINE BESYLATE 5 MG TABLET PO SCH (08:04)
[2020-08-06] MEDS: GABAPENTIN 300 MG CAPSULE PO SCH ×3 (08:05→16:08)
[2020-08-06] MEDS: QUETIAPINE FUMARATE 100 MG TABLET PO SCH ×2 (08:05→21:08)
[2020-08-06 16:00] VITALS: BP 141/63
[2020-08-06 19:41] VITALS: BP 146/71
[2020-08-06] MEDS: TRAZODONE 50 MG TABLET PO SCH (21:07)
[2020-08-06] MEDS: TEMAZEPAM 7.5 MG CAPSULE PO PRN (22:15)
--- NOTE | 2020-08-06 22:16 | NUR ---
GPS-RN NOTE: INSOMNIA PATIENT C/O INABILITY TO SLEEP. ADMINISTERED RESTORIL 7.5MG PO ORDERED. WILL CONTINUE TO MONITOR.
[2020-08-07] MEDS: oxyCODONE IR immediate release 5 MG PO PRN ×3 (05:41→18:46)
[2020-08-07 08:00] VITALS: BP 116/66
[2020-08-07] MEDS: GABAPENTIN 300 MG CAPSULE PO SCH ×3 (08:07→17:14)
[2020-08-07] MEDS: AMLODIPINE BESYLATE 5 MG TABLET PO SCH (08:08)
[2020-08-07] MEDS: QUETIAPINE FUMARATE 100 MG TABLET PO SCH ×2 (08:08→21:33)
--- NOTE | 2020-08-07 12:17 | NUR ---
RN NOTE: PAIN PT C/O 05/18 LOWER BACK PAIN. REQUESTING OXYCODONE. OXYCODONE ADMINISTERED ALONG WITH ROUTINE NEURONTIN
--- NOTE | 2020-08-07 12:20 | NUR ---
RN NOTE: PT NOTED TO BE SNORTING OXYCODONE PRN. STATES, "IT HITS ME HARDER". NO S/SX OF OVERDOSE NOTED. WILL NOTIFY .
--- NOTE | 2020-08-07 13:18 | NUR ---
RN NOTE: MD COMMUNICATION DR. MCPHERSON INFORMED OF PT SNORTING OXYCODONE PRN. VERBAL OK TO CRUSH MEDICATIONS.
[2020-08-07 16:00] VITALS: BP 138/72
[2020-08-07 20:26] VITALS: BP 134/94
[2020-08-07] MEDS: TRAZODONE 50 MG TABLET PO SCH (21:32)
[2020-08-07] MEDS: TEMAZEPAM 7.5 MG CAPSULE PO PRN (22:20)
--- NOTE | 2020-08-07 22:21 | NUR ---
GPS RN NOTE: INSOMNIA PT. C/O UNABLE TO SLEEP. ADMINISTERED RESTORIL 7.5 MG PO PRN ORDERED. WILL CONTINUE TO MONITOR.
[2020-08-08] MEDS: oxyCODONE IR immediate release 5 MG PO PRN ×3 (00:28→17:11)
--- NOTE | 2020-08-08 00:34 | NUR ---
GPS RN NOTE: PAIN PT. C/O 05/18 PAIN IN LOWER BACK. ADMINISTERED OXY IR 15 MG PRN ORDERED. WILL CONTINUE TO MONITOR.
[2020-08-08 08:00] VITALS: BP 119/84
[2020-08-08] MEDS: GABAPENTIN 300 MG CAPSULE PO SCH ×3 (08:27→17:10)
[2020-08-08] MEDS: QUETIAPINE FUMARATE 100 MG TABLET PO SCH ×2 (08:27→21:11)
[2020-08-08] MEDS: AMLODIPINE BESYLATE 5 MG TABLET PO SCH (08:28)
[2020-08-08 16:00] VITALS: BP 137/91
[2020-08-08 20:18] VITALS: BP 122/65
[2020-08-08] MEDS: TRAZODONE 50 MG TABLET PO SCH (21:11)
[2020-08-08] MEDS: TEMAZEPAM 7.5 MG CAPSULE PO PRN (21:54)
--- NOTE | 2020-08-08 21:55 | NUR ---
GPS RN NOTE: INSOMNIA PT. C/O UNABLE TO SLEEP. ADMINISTERED RESTORIL 7.5 MG PO PRN ORDERED. WILL CONTINUE TO MONITOR.
[2020-08-09] MEDS: oxyCODONE IR immediate release 5 MG PO PRN ×4 (00:17→20:46)
--- NOTE | 2020-08-09 00:50 | NUR ---
GPS RN NOTE: PATIENT COMPLAINED OF LOWER BACK PAIN. RATES PAIN LEVEL 8/10. OXY IR 5MG 3TABS/15MG GIVEN PO PRN ORDERED AT 0017. PT CURRENTLY LAYING ON BED. NO S/S OF DISTRESS. WILL CONTINUE TO MONITOR AND REASSESS.
--- NOTE | 2020-08-09 06:30 | NUR ---
GPS RN CLOSING NOTES: PT LAYING ON BED SLEEPING. SLEPT 8HR THIS SHIFT. NO S/S OF DISTRESS. RESPIRATION EVEN AND UNLABORED WITH EQUAL RISE AND FALL OF THE CHEST ON ROOM AIR. ALL PT CARE NEEDS MET ANTICIPATED. BED IS LOCKED AND IN LOWEST POSITION. WILL CONTINUE TO MONITOR AND ENDORSE TO AM SHIFT Addendum: 08/09/20 at 0632 by DELTA SCHULZ RN PLEASE DISREGARD NOTE, CHARTED ON WRONG PT.
[2020-08-09 07:07] LABS: BASOPHILS % (AUTO) 0.7 % (0.0-2.0); EOSINOPHILS % (AUTO) 6.9 % (0.0-6.0); HEMATOCRIT 45 % (39-51); HEMOGLOBIN 14.7 g/dL (13.5-17.5); LYMPHOCYTES # (AUTO) 1.4 /CMM (0.8-4.8); LYMPHOCYTES % (AUTO) 39.1 % (20.0-44.0); MEAN CORPUSCULAR HGB CONC 33 g/dl (31.0-36.0); MEAN CORPUSCULAR VOLUME 88 fL (80-96); MONOCYTES # (AUTO) 0.6 /CMM (0.1-1.30); MONOCYTES % (AUTO) 15.8 % (2.0-12.0); NEUTROPHILS # (AUTO) 1.4 /CMM (1.8-8.9); NEUTROPHILS % (AUTO) 37.5 % (43.0-81.0); PLATELET COUNT (AUTO) 175 /CMM (150-450); RED BLOOD CELL COUNT(AUTO) 5.09 MIL/uL (4.5-6.0); WHITE BLOOD COUNT (AUTO) 3.6 K/uL (4.3-11.0)
[2020-08-09 07:32] LABS: CALCIUM, SERUM 8.6 mg/dL (8.5-10.1); CREATININE 1.1 mg/dL (0.6-1.3); MAGNESIUM 2.2 mg/dL (1.8-2.4); POTASSIUM 3.9 mmol/L (3.5-5.1)
[2020-08-09 08:00] VITALS: BP 150/86
[2020-08-09] MEDS: GABAPENTIN 300 MG CAPSULE PO SCH ×3 (08:28→16:37)
[2020-08-09] MEDS: QUETIAPINE FUMARATE 100 MG TABLET PO SCH ×2 (08:28→22:04)
[2020-08-09] MEDS: AMLODIPINE BESYLATE 5 MG TABLET PO SCH (08:28)
--- NOTE | 2020-08-09 08:29 | NUR ---
GPS RN NOTE: PATIENT COMPLAINED OF LOWER BACK PAIN. RATES PAIN LEVEL 8/10. OXY IR 5MG 3TABS/15MG GIVEN PO PRN ORDERED NO S/S OF DISTRESS. WILL CONTINUE TO MONITOR AND REASSESS.
[2020-08-09 08:31] LABS: EOSINOPHILS % (MANUAL) 8 % (0-4); LYMPHOCYTES % (MANUAL) 36 % (16-48); MONOCYTES % (MANUAL) 16 % (0-11.0); NEUTROPHILS % (MANUAL) 40 (42-76)
[2020-08-09 16:00] VITALS: BP 118/86
[2020-08-09 19:30] VITALS: BP 137/78
--- NOTE | 2020-08-09 20:46 | NUR ---
GPS RN NOTE: PATIENT COMPLAINED OF LOWER BACK PAIN. RATES PAIN LEVEL 8/10. OXY IR 5MG 3TABS/15MG GIVEN PO PRN ORDERED. NO S/S OF DISTRESS. WILL CONTINUE TO MONITOR AND REASSESS.
[2020-08-09] MEDS: TRAZODONE 50 MG TABLET PO SCH (22:03)
[2020-08-09] MEDS: TEMAZEPAM 7.5 MG CAPSULE PO PRN (23:00)
--- NOTE | 2020-08-09 23:01 | NUR ---
GPS RN NOTE: PT ASKED FOR RESTORIL D/T INSOMNIA. RESTORIL 7.5MG 1 CAP GIVEN PO ORDERED AT 2300. PT CURRENTLY LAYING ON BED AWAKE. WILL CONTINUE TO MONITOR AND ASSESS.
[2020-08-10] MEDS: oxyCODONE IR immediate release 5 MG PO PRN ×4 (04:19→16:13)
--- NOTE | 2020-08-10 04:33 | NUR ---
GPS RN NOTE: PATIENT COMPLAINED OF LOWER BACK PAIN. RATES PAIN LEVEL 8/10. OXY IR 5MG 3TABS/15MG GIVEN PO PRN ORDERED AT 0419. NO S/S OF DISTRESS. PT AWAKE EATING SNACKS. WILL CONTINUE TO MONITOR AND REASSESS.
--- NOTE | 2020-08-10 06:37 | NUR ---
GPS RN CLOSING NOTE: PT IS CURRENTLY LAYING ON BED AWAKE. SLEPT 6HR THIS SHIFT. NO S/S OF DISTRESS. RESPIRATION EVEN AND UNLABORED WITH EQUAL RISE AND FALL OF THE CHEST ON ROOM AIR. ALL PT CARE NEEDS MET ANTICIPATED. BED IS LOCKED AND IN LOWEST POSITION. WILL CONTINUE TO MONITOR AND ENDORSE TO AM SHIFT.
[2020-08-10 08:00] VITALS: BP 116/67
[2020-08-10] MEDS: GABAPENTIN 300 MG CAPSULE PO SCH ×3 (08:38→16:10)
[2020-08-10] MEDS: QUETIAPINE FUMARATE 100 MG TABLET PO SCH (08:39)
[2020-08-10] MEDS: AMLODIPINE BESYLATE 5 MG TABLET PO SCH (08:39)
--- NOTE | 2020-08-10 09:00 | NUR ---
RN NOTE- PT VISIBLE ON UNIT, INTERACTIVE MED COMPLIANT, PAIN RX ON THE CLOCK, PO INTAKE GOOD ADEQUATE ANALGESIA W CURRENT RX, NO BEHAVIORAL ISSUES DENIES ALL
--- NOTE | 2020-08-10 12:56 | NUR ---
DISCHARGE NOTE: Pt will be discharged at 4:00pm via AM [facility] Address: [address] [place] [address] Room 1C. Pt has no family to notify. Pts mood is euthymic with congruent affect. Pt denied visual/auditory hallucinations and denies suicidal/homicidal ideation. Pt is alert and oriented x3, is ambulatory and appears appropriately dressed and groomed. Pt will be under the care of Psychiatrist: Dr. Elizabeth Cohn [address] [place] [address], [place] [address] and will address his substance use with her. Pt will also be under the care of Auto Repair Shop Manager: Dr Marrero Address: [address] [facility] [address], [place] [address] [phone]. The multidisciplinary exit care form was done, printed, signed, and given to the patient.
--- NOTE | 2020-08-10 15:00 | NUR ---
RN NOTE- ATTEMPTED TO CALL REPORT TO LYNETTE AN. NO ANSWER
--- NOTE | 2020-08-10 15:40 | NUR ---
RN NOTE- ATTEMPTED TO CALL REPORT TO LYNETTE AN . NO ANSWER
[2020-08-10 16:00] VITALS: BP 158/75
--- NOTE | 2020-08-10 16:30 | NUR ---
RN NOTE- [employer] INSTALLER NOTIFIED. AMBULANCE ENROUTE. ATTEMPTED TO CALL REPORT TO PLEASANTON NATALIYA. NO ANSWER
--- NOTE | 2020-08-10 16:45 | NUR ---
RN DC NOTE- PT DC TO [facility] VIA GURNEY AND AMBULANCE AT THIS TIME. ALERT ORIENTED TO PERSON PLACE TIME PURPOSE. VS STABLE, DENIES SI HI AH VH. VALUABLES RETURNED TO PT AND PHARMACY RX GIVEN TO AMBULANCE STAFF TO DELIVER TO RN AT FACILITY. AFTER CARE EXPLAINED AND UNDERSTOOD. ID [id number] REMOVED. ESCORTED OFF UNIT Addendum: 08/10/20 at 1742 by CARIE HARTMANN RN RN NOTE/ADDENDUM- PT REFUSED PNA / FLU VACCINE STATED HE GETS AT FACILITY BUT UNAWARE OF DATE OF LAST. STATED HE HAD IN LAST YEAR.
== END 2020-08-10 16:45 | DRG 885 ==
LOC: ER 17:07 → GPS 22:09 → ICU 08-04 12:51 → GPS 08-04 12:54
PROVIDERS: ADMIT Psychiatry & Neurology Psychiatry; ATTEND Nurse Practitioner Acute Care
DX: F25.9 Schizoaffective disorder, unspecified (principal); E43 Unspecified severe protein-calorie malnutrition; R45.851 Suicidal ideations; I10 Essential (primary) hypertension; G89.4 Chronic pain syndrome; F17.210 Nicotine dependence, cigarettes, uncomplicated; E88.09 Other disorders of plasma-protein metabolism, not elsewhere classified; Z68.34 Body mass index [BMI] 34.0-34.9, adult; F19.90 Other psychoactive substance use, unspecified, uncomplicated; G62.9 Polyneuropathy, unspecified; M16.0 Bilateral primary osteoarthritis of hip; M48.00 Spinal stenosis, site unspecified; M19.90 Unspecified osteoarthritis, unspecified site; Z91.09 Other allergy status, other than to drugs and biological substances; Z79.899 Other long term (current) drug therapy; F41.9 Anxiety disorder, unspecified; R27.8 Other lack of coordination; F32.9 Major depressive disorder, single episode, unspecified; Z91.81 History of falling; Z91.14 Patient's other noncompliance with medication regimen; Z91.5 Personal history of self-harm; E66.9 Obesity, unspecified
CPT/HCPCS: 36415; 80048-TC; 80053-TC; 80061-TC; 80076-TC; 81000-TC; 82962-TC; 83735-TC; 84100-TC; 85025-TC; 87081-TC; C9803; G0480; Q0162

== ENCOUNTER 2020-09-10 14:12 | Inpatient (IN) | payer MEDICARE, OTHER ==
[~2020-09-10] VITALS: Ht 188 cm; Wt 121.6 kg
[~2020-09-10 14:12] MED LIST changes: +AMLO-212 PO; -AMLO5TAB9 PO
--- NOTE | 2020-09-10 14:30 | NUR ---
auditory hallucination telling him to run to traffic x 2 days. also c/o chronic back pain. Patient a/ox4, breathing even and unlabored, no sob noted. Needs attended.
[2020-09-10 15:00] LABS: BASOPHILS # (AUTO) 0.1 /CMM (0.0-0.2); BASOPHILS % (AUTO) 1.3 % (0.0-2.0); EOSINOPHILS % (AUTO) 2.1 % (0.0-6.0); HEMATOCRIT 48 % (39-51); HEMOGLOBIN 15.8 g/dL (13.5-17.5); LYMPHOCYTES # (AUTO) 1.5 /CMM (0.8-4.8); LYMPHOCYTES % (AUTO) 24.1 % (20.0-44.0); MEAN CORPUSCULAR HGB CONC 33 g/dl (31.0-36.0); MEAN CORPUSCULAR VOLUME 88 fL (80-96); MONOCYTES # (AUTO) 0.6 /CMM (0.1-1.30); MONOCYTES % (AUTO) 9.2 % (2.0-12.0); NEUTROPHILS # (AUTO) 3.9 /CMM (1.8-8.9); NEUTROPHILS % (AUTO) 63.3 % (43.0-81.0); PLATELET COUNT (AUTO) 283 /CMM (150-450); RED BLOOD CELL COUNT(AUTO) 5.44 MIL/uL (4.5-6.0); WHITE BLOOD COUNT (AUTO) 6.2 K/uL (4.3-11.0)
[2020-09-10 15:11] LABS: CALCIUM, SERUM 9.3 mg/dL (8.5-10.1); CARBON DIOXIDE 30 mmol/L (21-32); CHLORIDE 109 mmol/L (98-107); CREATININE 1.1 mg/dL (0.6-1.3); GLUCOSE 117 mg/dL (74-106); POTASSIUM 4.3 mmol/L (3.5-5.1); SODIUM SERUM 146 mmol/L (136-145); UREA NITROGEN, BLOOD 16 mg/dL (7-18)
[2020-09-10 15:14] LABS: BILIRUBIN,URINE NEGATIVE (NEGATIVE); BLOOD, URINE NEGATIVE Ery/uL (NEGATIVE); COLOR,URINE YELLOW (YELLOW); LEUKOCYTE ESTERASE ,URINE NEGATIVE (NEGATIVE); NITRITE, URINE NEGATIVE (NEGATIVE); PROTEIN,URINE 30 mg/dl (NEGATIVE); UGLUCOSE NEGATIVE (NEGATIVE)
[2020-09-10 15:21] LABS: ALANINE AMINOTRANSFERASE 219 U/L (12-78); ALBUMIN 3.8 g/dL (3.4-5.0); ALCOHOL, BLOOD < 3 mg/dL (0-0); ALKALINE PHOSPHATASE 138 U/L (46-116); ASPARTATE AMINOTRANSFERASE 110 U/L (15-37); BILIRUBIN,DIRECT 0.2 mg/dL (0.0-0.2); BILIRUBIN,TOTAL 0.4 mg/dL (0.2-1.0); TOTAL PROTEIN, SERUM 8.7 g/dL (6.4-8.2)
[2020-09-10 15:38] LABS: BACTERIA,URINE None seen /HPF (None Seen); MUCUS,URINE Few /LPF (None Seen); RBC,URINE 0-2 /HPF (0-2); SQUAMOUS EPITHELIAL CELL,UR 0-2 /HPF (None Seen); WBC,URINE 0-2 /HPF (0-3)
--- NOTE | 2020-09-10 15:40 | NUR ---
covid swab sent.
[2020-09-10 15:45] LABS: ACETAMINOPHEN < 2 ug/ml (10-30)
--- NOTE | 2020-09-10 15:47 | NUR ---
PATIENT IS MEDICALLY CLEARED PER DR. VILLA. CALLING PRESS MACHINE OPERATOR FOR EVAL.
--- NOTE | 2020-09-10 15:49 | NUR ---
CALLED ART TRACTOR DRILL OPERATOR. ETA 30 MINS.
--- NOTE | 2020-09-10 16:59 | NUR ---
covid 19 negative.
--- NOTE | 2020-09-10 17:04 | NUR ---
called nursing sup for gps bed
[2020-09-10] MEDS ORDERED: QUET200T PO ×2 (17:11)
[2020-09-10] MEDS ORDERED: TEMA30CA PO (17:11)
[2020-09-10] MEDS ORDERED: GABA800T11 PO (17:11)
[2020-09-10] MEDS ORDERED: CLON1TAB12 PO (17:11)
[2020-09-10] MEDS ORDERED: HYDROCODONE/APAP 5/325MG TABLET PO ONE (18:00)
[2020-09-10] MEDS ORDERED: HYDROCODONE/APAP 5/325MG TABLET ONE (18:03)
--- NOTE | 2020-09-10 18:09 | NUR ---
REPORT GIVEN TO ERIN AC AT [facility].
--- NOTE | 2020-09-10 18:11 | NUR ---
PATIENT TRANSFERRED TO [facility], NO DISTRESS NOTED. IN STABLE CONDITION.
[2020-09-10 19:00] VITALS: BP 142/82
[2020-09-10] MEDS ORDERED: ACETAMINOPHEN 325 MG TABLET PO PRN (19:00)
[2020-09-10] MEDS ORDERED: MAGNESIUM HYDROXIDE 30 ML UDC PO PRN (19:00)
[2020-09-10] MEDS ORDERED: BLOOD SUGAR DIAGNOSTIC 1 EACH STRIP IN ONE (19:00)
[2020-09-10] MEDS ORDERED: MAG HYDROX/AL HYDROX/SIMETH 30 ML UDC PO PRN (19:00)
--- NOTE | 2020-09-10 19:01 | NUR ---
Pt. arrived in the unit via a wheel chair and wheeled by ER staff. Dr. Cohn made aware of the admission and gave orders. V/S taken, contraband done and pt. signed the admission papers. Will endorse to the incoming nurse for the completion of the admission.
[2020-09-10] MEDS ORDERED: LISI10TA5 PO (19:54)
[2020-09-10 20:02] VITALS: BP 149/88
--- NOTE | 2020-09-10 20:29 | NUR ---
GPS RN NOTE CHECKED WITH THE PATIENT WHO TO NOTIFY IN HIS FAMILY REGARDING HIS ADMISSION TO GPS UNIT, PATIENT STATED, "ITS MY BROTHER JORGE BROWNING TO BE NOTIFIED BUT DO NOT BOTHER HIM, HE IS SICK." PATIENT CLAIMED THAT HIS BROTHER JORGE BROWNING IS ALREADY AWARE ABOUT HIS ADMISSION TO [facility] UNIT.
--- NOTE | 2020-09-10 20:30 | NUR ---
GPS ADMISSION NOTE: RECEIVED PT FROM AM RN ON GPS UNIT. PT. ARRIVED AT 1830 VIA GURNEY WITH ER STAFF. PT ADMITTED ON A 5150 HOLD FOR DTS. PER HOLD PT IS A & O IN ALL SPHERES, DEPRESSED & SUICIDAL WITH A PLAN TO RUN INTO TRAFFIC & HEARS VOICES TELLING HIM TO DO THE SAME. UPON FACE TO FACE ASSESSMENT PATIENT IS ABLE & WILLING TO CONTRACT FOR SAFETY AT THIS TIME. A/O X3, VERBALIZED VAGUE SI BUT NO PLAN, FEELS SAFE TO BE IN THE HOSPITAL. DISHEVELED, POOR HYGIENE. DEPRESSED, GUARDED, ISOLATIVE, FLAT AFFECT, COOPERATIVE & REDIRECTABLE. NO S/S OF DISTRESS, SOB. PT SIGNED PAPERWORK. PT WAS ADVISED OF HOLD AND GIVEN PATIENT RIGHTS HANDBOOK. REFUSED PNEUMONIA & FLU VACCINE DESPITE OF EXPLANATIONS. AMBULATORY WITH WALKER. UNDER [facility] [place]. BELONGINGS WERE INVENTORIED AND CHECKED FOR CONTRABAND. ALL CONTRABAND REMOVED AND STORED IN HALLWAY LOCKER. REFUSED SKIN ASSESSMENT & PICTURE AT THIS TIME, FOCUSED ON GETTING PAIN MEDICATION ONLY. SKIN APPEARS TO BE DRY. ABLE TO MAKE NEEDS KNOWN. EDUCATED ON PATIENT CALL LIGHT. BED LOCKED AND LOW POSITION. WILL CONTINUE TO MONITOR FOR Q 15 MIN & PRN FOR SAFETY, MOOD & BEHAVIOR.
[2020-09-10 20:35] VITALS: BP 149/88
--- NOTE | 2020-09-10 20:46 | NUR ---
GPS RN NOTE NOTIFIED DR. DELUNA ABOUT PATIENT'S ADMISSION AT [facility] UN[facility] & MED RECON NEEDS TO BE DONE, ACKNOWLEDGED IT & STATED MED RECON WILL BE DONE.
[2020-09-10] MEDS: TEMAZEPAM 7.5 MG CAPSULE PO PRN (21:24)
--- NOTE | 2020-09-10 21:24 | NUR ---
GPS RN NOTE: INSOMNIA PATIENT VERBALIZED THAT HE IS UNABLE TO SLEEP & WANTS TO TAKE SLEEPING MEDICINE. PRN RESTORIL 7.5 MG 1 CAP PO GIVEN. WILL CONTINUE TO MONITOR.
--- NOTE | 2020-09-11 02:25 | NUR ---
GPS RN NOTE MED RECON DONE BY DR. DELUNA.
--- NOTE | 2020-09-11 03:15 | NUR ---
GPS RN NOTE PATIENT ALLOWED ONLY TO TAKE FACE PICTURE & BILATERAL LOWER LEGS, REFUSED FULL BODY ASSESSMENT, STATED," I AM OK, I ONLY HAVE DRYNESS, GIVE ME LOTION, I WILL DO IT ON MY OWN." DESPITE OF RISKS & BENEFIT EXPLANATIONS, PATIENT CONTINUED TO REFUSE FULL BODY ASSESSMENT.
[2020-09-11] MEDS: LORAZEPAM 0.5 MG TABLET PO PRN (03:25)
--- NOTE | 2020-09-11 03:26 | NUR ---
GPS RN NOTE: ANXIETY PATIENT VERBALIZED THAT HE IS VERY ANXIOUS, RESTLESS & UNABLE TO SLEEP, REQUESTED TO GET ATIVAN, PRN ATIVAN 0.5 MG 1 TAB PO GIVEN. WILL CONTINUE TO MONITOR.
[2020-09-11] MEDS: oxyCODONE IR immediate release 5 MG PO SCH ×3 (05:41→20:38)
[2020-09-11 08:22] LABS: CHOLESTEROL 128 mg/dL (<200); HDL CHOLESTEROL 52 mg/dL (40-60); LDL 71 mg/dL (0-99); TRIGLYCERIDES 73 mg/dL (30-150)
[2020-09-11 08:29] LABS: ALBUMIN 3.6 g/dL (3.4-5.0); BILIRUBIN,TOTAL 0.4 mg/dL (0.2-1.0); CALCIUM, SERUM 8.6 mg/dL (8.5-10.1); POTASSIUM 4.2 mmol/L (3.5-5.1); TOTAL PROTEIN, SERUM 8.3 g/dL (6.4-8.2)
--- NOTE | 2020-09-11 09:00 | NUR ---
RN NOTE- PT ALERT ORIENTED INTERACTIVE CALM DIRECTABLE STATES HE HAS AH PERIODICALLY. PO INTAKE GOOD MED COMPLIANT, FOCUS ON PAIN RX
[2020-09-11] MEDS: AMLODIPINE BESYLATE 5 MG TABLET PO SCH (09:03)
[2020-09-11] MEDS: GABAPENTIN 400 MG CAPSULE PO SCH ×3 (09:03→16:21)
[2020-09-11] MEDS: LISINOPRIL (10MG) 10 MG TABLET PO SCH ×2 (09:03→16:21)
[2020-09-11 09:10] VITALS: BP 138/87
[2020-09-11] MEDS: OLANZAPINE 2.5 MG TABLET PO SCH (14:48)
--- NOTE | 2020-09-11 14:58 | NUR ---
Family Contact: SW called the pts couinDaniel ([phone]), who confirmed that the pt can live with him once he is discharged from the hospital. Pts cousin also provided the SW with the address of his residence.
--- NOTE | 2020-09-11 14:59 | NUR ---
Initial Discharge Plan: Pt currently resides at his cousin, Jaime hicks, located at [address] [place] [address]; ([phone]). Per pt, he would like to return. SUZANNA called the pts Daniel paul ([phone]), who confirmed that the pt can live with him. SUZANNA will work with the pt and the MD regarding appropriate discharge planning. SUZANNA will form a safe and proper discharge.
[2020-09-11 16:15] VITALS: BP 137/70
[2020-09-11 20:06] VITALS: BP 143/72
[2020-09-11] MEDS: OLANZAPINE 5 MG TABLET PO SCH (21:04)
[2020-09-11] MEDS: TEMAZEPAM 7.5 MG CAPSULE PO PRN (22:36)
--- NOTE | 2020-09-11 22:37 | NUR ---
RN NOTES: INSOMNIA PATIENT C/O UNABLE TO SLEEP & WANTS TO TAKE SLEEPING MEDICINE. PRN RESTORIL 7.5 MG 1 CAP PO GIVEN. WILL CONTINUE TO MONITOR.
[2020-09-12] MEDS: oxyCODONE IR immediate release 5 MG PO SCH ×3 (04:48→20:37)
[2020-09-12 08:00] VITALS: BP 149/84
[2020-09-12] MEDS: OLANZAPINE 2.5 MG TABLET PO SCH (09:23)
[2020-09-12] MEDS: GABAPENTIN 400 MG CAPSULE PO SCH ×3 (09:23→17:46)
[2020-09-12] MEDS: LISINOPRIL (10MG) 10 MG TABLET PO SCH ×2 (09:24→17:47)
[2020-09-12] MEDS: AMLODIPINE BESYLATE 5 MG TABLET PO SCH (09:24)
[2020-09-12 16:18] VITALS: BP 156/74
[2020-09-12] MEDS: OLANZAPINE 5 MG TABLET PO SCH (20:36)
[2020-09-12 21:03] VITALS: BP 141/68
[2020-09-12] MEDS: TEMAZEPAM 7.5 MG CAPSULE PO PRN (22:39)
--- NOTE | 2020-09-12 22:54 | NUR ---
RN NOTES: INSOMNIA PT.C/O UNABLE TO SLEEP , RESTORIL 15 MG PO PRN GIVEN PER PT. REQUEST WILL CONTINUE TO MONITOR.
[2020-09-13] MEDS: oxyCODONE IR immediate release 5 MG PO SCH ×3 (04:50→20:07)
[2020-09-13 08:00] VITALS: BP 124/68
[2020-09-13] MEDS: AMLODIPINE BESYLATE 5 MG TABLET PO SCH (08:42)
[2020-09-13] MEDS: GABAPENTIN 400 MG CAPSULE PO SCH ×3 (08:42→16:15)
[2020-09-13] MEDS: LISINOPRIL (10MG) 10 MG TABLET PO SCH ×2 (08:42→16:16)
[2020-09-13] MEDS: OLANZAPINE 2.5 MG TABLET PO SCH (08:42)
--- NOTE | 2020-09-13 09:00 | NUR ---
RN NOTE- PT QUIET , PO INTAKE GOOD MED COMPLIANT ISOLATIVE WITHDRAWN DENIES SI HI THOUGH STATES HE HEARS VOICES. NO BEHAVIORAL ISSUES, ENCOURAGING ADLS GROOMING REFUSES AT PRESENT
[2020-09-13] MEDS: LORAZEPAM 0.5 MG TABLET PO PRN (15:20)
--- NOTE | 2020-09-13 15:20 | NUR ---
RN NOTE- C/O ANXIETY. ATIVAN 0.5 MG GIVEN
[2020-09-13 16:00] VITALS: BP 146/97
[2020-09-13 20:00] VITALS: BP 142/74
[2020-09-13] MEDS: OLANZAPINE 5 MG TABLET PO SCH (21:25)
[2020-09-13] MEDS: TEMAZEPAM 7.5 MG CAPSULE PO PRN (21:42)
--- NOTE | 2020-09-13 21:42 | NUR ---
GPS RN NOTE: INSOMNIA PT REQUESTED SLEEPING PILL STATED HE WAS UNABLE TO SLEEP, ADMIN RESTORIL 15MG PRN @2141, WILL REASSESS AND CONTINUE TO MONITOR Q15MIN FOR SAFETY AND BEHAVIOR
[2020-09-14] MEDS: oxyCODONE IR immediate release 5 MG PO SCH ×3 (04:08→20:32)
[2020-09-14 08:00] VITALS: BP 134/75
[2020-09-14] MEDS: GABAPENTIN 400 MG CAPSULE PO SCH ×3 (09:03→16:11)
[2020-09-14] MEDS: AMLODIPINE BESYLATE 5 MG TABLET PO SCH (09:04)
[2020-09-14] MEDS: LISINOPRIL (10MG) 10 MG TABLET PO SCH ×2 (09:08→16:11)
[2020-09-14] MEDS: OLANZAPINE 2.5 MG TABLET PO SCH (09:09)
--- NOTE | 2020-09-14 12:07 | NUR ---
RN-CO: PERCOCET GIVEN FOR C/O BACK PAIN 05/18.
[2020-09-14] MEDS ORDERED: clonazePAM 0.5 MG TABLET PO SCH (13:00)
[2020-09-14 16:00] VITALS: BP 138/83
[2020-09-14] MEDS: OLANZAPINE 5 MG TABLET PO SCH (20:31)
[2020-09-14 20:33] VITALS: BP 142/79
[2020-09-14] MEDS: TEMAZEPAM 7.5 MG CAPSULE PO PRN (21:26)
--- NOTE | 2020-09-15 00:22 | NUR ---
RN Note: Patient c/o difficulty falling asleep,requested and given Restoril 15 mg PO with good effect.
[2020-09-15] MEDS: oxyCODONE IR immediate release 5 MG PO SCH ×3 (05:14→20:04)
[2020-09-15 08:00] VITALS: BP 130/79
[2020-09-15] MEDS: OLANZAPINE 2.5 MG TABLET PO SCH (08:58)
[2020-09-15] MEDS: GABAPENTIN 400 MG CAPSULE PO SCH ×3 (08:58→17:27)
[2020-09-15] MEDS: AMLODIPINE BESYLATE 5 MG TABLET PO SCH (08:58)
[2020-09-15] MEDS: LISINOPRIL (10MG) 10 MG TABLET PO SCH ×2 (08:59→17:28)
--- NOTE | 2020-09-15 10:45 | NUR ---
SUZANNA SNF Referral: SUZANNA faxed patient's referral packet to [facility] for review and possible placement attention to [facility] ( ).
[2020-09-15 16:00] VITALS: BP 136/67
[2020-09-15 21:23] VITALS: BP 129/71
[2020-09-15] MEDS: OLANZAPINE 5 MG TABLET PO SCH (21:27)
[2020-09-15] MEDS: TEMAZEPAM 7.5 MG CAPSULE PO PRN (23:44)
--- NOTE | 2020-09-15 23:44 | NUR ---
GPS-RN NOTES: INSOMNIA PATIENT C/O INABILITY TO SLEEP. ADMINISTERED RESTORIL 15MG PO ORDERED. WILL CONTINUE TO MONITOR FOR PT'S SAFETY.
[2020-09-16] MEDS: oxyCODONE IR immediate release 5 MG PO SCH ×3 (04:49→20:23)
[2020-09-16 08:00] VITALS: BP 115/68
[2020-09-16] MEDS: GABAPENTIN 400 MG CAPSULE PO SCH ×3 (08:23→16:38)
[2020-09-16] MEDS: OLANZAPINE 2.5 MG TABLET PO SCH ×2 (08:23→13:14)
[2020-09-16] MEDS: AMLODIPINE BESYLATE 5 MG TABLET PO SCH (08:24)
[2020-09-16] MEDS: clonazePAM 0.5 MG TABLET PO PRN (08:24)
[2020-09-16] MEDS: LISINOPRIL (10MG) 10 MG TABLET PO SCH ×2 (08:25→16:38)
--- NOTE | 2020-09-16 12:56 | NUR ---
Hearing: Court hearing today upheld for probable cause GD and danger to self.
--- NOTE | 2020-09-16 13:07 | NUR ---
SW Individual Therapy: hide mill worker met with patient for brief counseling and assessed for level of suicidality. hide mill worker assessed for suicidal thoughts, patient denied suicidal thoughts. Patient expressed that he no longer feels SI and is ready to be discharged. Patient was vague with this SW and stated "I want to sleep".
[2020-09-16 16:00] VITALS: BP 151/72
[2020-09-16 19:53] VITALS: BP 148/79
[2020-09-16] MEDS: OLANZAPINE 5 MG TABLET PO SCH (20:23)
[2020-09-16] MEDS: TEMAZEPAM 7.5 MG CAPSULE PO PRN (21:17)
[2020-09-17] MEDS: oxyCODONE IR immediate release 5 MG PO SCH ×2 (04:56→12:45)
--- NOTE | 2020-09-17 04:56 | NUR ---
GPS RN NOTE, PATIENT HAS A COMPLAINT OF LOWER BACK PAIN AT 8 OUT OF 10 ON PAIN SCALE AND IS REQUESTING OXY IR. PATIENT VITAL SIGNS ARE STABLE. GAVE OXY IR 15 MG PO Q8HR SHAHID ORDERED. WILL REASSESS PAIN AND I WILL CONTINUE TO MONITOR THIS PATIENT.
[2020-09-17 07:21] LABS: CALCIUM, SERUM 8.4 mg/dL (8.5-10.1); CREATININE 0.9 mg/dL (0.6-1.3); POTASSIUM 4.1 mmol/L (3.5-5.1)
[2020-09-17 08:00] VITALS: BP 128/71
--- NOTE | 2020-09-17 08:02 | NUR ---
RN-CO: [facility] WAS [facility] UP FOR [place], TRIP # [id number].
[2020-09-17] MEDS: clonazePAM 0.5 MG TABLET PO PRN (08:21)
[2020-09-17] MEDS: OLANZAPINE 2.5 MG TABLET PO SCH ×2 (08:21→12:46)
[2020-09-17 08:22] VITALS: BP 128/71
[2020-09-17] MEDS: GABAPENTIN 400 MG CAPSULE PO SCH ×2 (08:22→12:46)
[2020-09-17] MEDS: AMLODIPINE BESYLATE 5 MG TABLET PO SCH (08:22)
[2020-09-17] MEDS: LISINOPRIL (10MG) 10 MG TABLET PO SCH (08:22)
--- NOTE | 2020-09-17 08:23 | NUR ---
Discharge Note: [place] [facility] [address] [place] [address] ([phone]) via ambulance transportation at 11am today. Dietitian Research spoke with Esperanza, [place] Room Attendant at the [facility] who confirmed patient will be accepted at facility today. Patients cousin Daniel ([phone]) is made aware and is agreeable with discharge plan. Patient is alert and oriented x4. Patient is not able to plan for self-care at this time, however, is willing to accept care provided for him at the facility. Patient denies suicidal or homicidal ideation and is aware and agreeable with discharge plans. Patient presents with euthymic mood and congruent affect. Patient will follow-up at the facility with (Psychiatrist) Dr. Cohn and (Contract Clerk) Dr. Jhaveri.
--- NOTE | 2020-09-17 09:20 | NUR ---
RN-CO:Patient is aware of his discharge. Anxious in am, I gave klonopin po. He denied SI/HI,VH.AH. No acute distress noted. He is coopertive to care. Dr Cohn ordered to discontinue hold and discharge the patient to [facility]. Cousin Daniel agreed. Dr Weems medically cleared pt for discharge and order to continue current medications.
--- NOTE | 2020-09-17 09:29 | NUR ---
RN-CO: Patient is alert and oriented x 4, able to make needs known. Patient has been cooperative to care. He is aware of his discharge today and agreed for placement.Discharge papers and exit care was discussed to him and he verbalized understanding. All veluables and medication when he came here will be given back to him.His skin is intact and dry.[facility] will pick him up at 1:30 pm.
--- NOTE | 2020-09-17 10:02 | NUR ---
RN-CO: Tried to give report to [facility]. medical office receptionist assistant stated that RN is with the patient.
--- NOTE | 2020-09-17 10:33 | NUR ---
RN-CO: CALLED AGAIN [facility]YNA[facility]O [facility]IEIR[facility], SUPPORT SERVICE TECH STATED THAT "YASHIRA PATRICK" IS NOT IN THE BUILDING AT THIS TIME.
--- NOTE | 2020-09-17 12:01 | NUR ---
RN-CO: REPORT WAS GIVEN TO CATHY AC.
--- NOTE | 2020-09-17 13:30 | NUR ---
RN-CO: PT WAS PICKED UP BY [facility], HIS PERSONAL WALKER WAS GIVEN BACK, VALUABLES AND MEDICATIONS.
== END 2020-09-17 13:35 | DRG 885 ==
LOC: ER 14:14 → GPS 18:49
PROVIDERS: ADMIT Psychiatry & Neurology Psychosomatic Medicine; ATTEND Nurse Practitioner Acute Care
DX: F20.9 Schizophrenia, unspecified (principal); E43 Unspecified severe protein-calorie malnutrition; F11.20 Opioid dependence, uncomplicated; R45.851 Suicidal ideations; F32.9 Major depressive disorder, single episode, unspecified; Z68.34 Body mass index [BMI] 34.0-34.9, adult; F19.90 Other psychoactive substance use, unspecified, uncomplicated; R41.9 Unspecified symptoms and signs involving cognitive functions and awareness; I10 Essential (primary) hypertension; G62.9 Polyneuropathy, unspecified; F17.200 Nicotine dependence, unspecified, uncomplicated; M19.90 Unspecified osteoarthritis, unspecified site; Z88.4 Allergy status to anesthetic agent; Z88.8 Allergy status to other drugs, medicaments and biological substances; Z79.899 Other long term (current) drug therapy; M48.00 Spinal stenosis, site unspecified; G89.4 Chronic pain syndrome; Z91.14 Patient's other noncompliance with medication regimen; R27.8 Other lack of coordination; F41.9 Anxiety disorder, unspecified; Z91.81 History of falling; F29 Unspecified psychosis not due to a substance or known physiological condition; Z73.6 Limitation of activities due to disability; M16.0 Bilateral primary osteoarthritis of hip; E66.9 Obesity, unspecified; Z59.0 Homelessness
CPT/HCPCS: 36415; 80048-TC; 80053-TC; 80061-TC; 80076-TC; 81001; 82962-TC; 85025-TC; 87081-TC; 97116-TC; 97530-TC; C9803; G0480